=== PATIENT | male | born 1955 | race Caucasian/White ===

== ENCOUNTER 2018-11-22 13:34 | Inpatient (IN) ==
[2018-11-22] MEDS ORDERED: LASIX IV ONE (14:01)
[2018-11-22 14:38] LABS: BE -3.4 mmoll (-2.0-2.0); BLOOD TYPE VENOUS; HCO3-(ACT) 21.9 mmoll (22-27); PCO2(98.6) 35 mmHg (40-60); PO2(98.6) 37 mmHg (30-55); SAMPLE BLOOD; SAO2 73.4 % (40.0-85.0); pH(98.6) 7.39 (7.32-7.43)
[2018-11-22 14:48] LABS: BASO# 0.14 X1000 (0.0-0.2); BASO% 1.2 % (0.0-0.8); EOS% 4.4 % (0.0-10.0); HEMATOCRIT 23.3 % (42.0-52.0); HEMOGLOBIN 6.4 g/dL (14.0-18.0); IMM GRAN# 0.04 X1000 (0.0-0.04); IMM GRAN% 0.3 % (0.0-0.5); LYMPH# 1.61 X1000 (1.2-3.4); LYMPH% 14.1 % (20.5-51.1); MCH 20.8 PG (27-31); MCHC 27.5 g/dL (33-37); MCV 75.6 FL (81-99); MONO# 1.27 X1000 (0.11-0.59); MONO% 11.1 % (1.7-9.3); MPV 10.2 FL (7.4-10.4); NEUT# 7.89 X1000 (1.4-6.5); NEUT% 68.9 % (42.2-75.2); PLT 233 X1000 (130-400); RBC 3.08 XMIL (4.7-6.1); WBC 11.45 X1000 (4.8-10.8)
--- NOTE | 2018-11-22 14:49 | Diag Imaging Result Doc PS360 ---
CHEST-2 VIEWS - 11/22/2018 INDICATION: short of breath COMPARISON: 02/14/2018 FINDINGS: Lung volumes are moderately low. There is worsening right hemidiaphragm elevation. There is some adjacent atelectasis. No focal infiltrates, pneumothorax, or pleural effusion. Heart size is normal. IMPRESSION: Lower lung volumes. Worsening right hemidiaphragm elevation with adjacent atelectasis. Electronically signed by Gurinder Andrews 11/22/2018 2:48 PM
[2018-11-22 14:59] LABS: BILIRUBIN URINE NEGATIVE (NEGATIVE); BLOOD URINE 4+ (NEGATIVE); GLUCOSE URINE NEGATIVE (NEGATIVE); KETONE URINE NEGATIVE (NEGATIVE); LEUKOCYTES URINE TRACE (NEGATIVE); NITRITE URINE NEGATIVE (NEGATIVE); PH URINE 6.5; PROTEIN URINE TRACE mg/dL (NEGATIVE); UR AMPHETAMINES QUAL NONE DETECTED (NONE DETECT); UR BARBITUATES QUAL NONE DETECTED (NONE DETECT); UR BENZODIAZEPIN QUAL NONE DETECTED (NONE DETECT); UR CANNABINOIDS QUAL NONE DETECTED (NONE DETECT); UR COCAINE QUAL NONE DETECTED (NONE DETECT); UR METHADONE QUAL NONE DETECTED (NONE DETECT); UR METHAMPHETAMINE QUAL NONE DETECTED (NONE DETECT); UR OPIATES QUAL NONE DETECTED (NONE DETECT); UR OXYCODONE QUAL NONE DETECTED (NONE DETECT); UR PCP QUAL NONE DETECTED (NONE DETECT); UR PROPOXYPHENE QUAL NONE DETECTED (NONE DETECT); UR TCA QUAL NONE DETECTED (NONE DETECT); UROBILINOGEN URINE NORMAL
[2018-11-22 15:00] LABS: CLARITY SL. CLOUDY (CLEAR); COLOR YELLOW
[2018-11-22 15:00] LABS: INR 1.29; PROTIME 16.7 Seconds (11.0-16.0)
[2018-11-22 15:01] LABS: PTT 35.4 Seconds (22.3-41.8)
[2018-11-22 15:05] LABS: URINE SOURCE CLEAN CATCH
[2018-11-22 15:08] LABS: URINE BACTERIA 1+ /HFP; URINE CAST NONE SEEN /LPF; URINE CRYSTAL NONE SEEN /HPF; URINE EPITHELIAL CELLS <10 /HPF (<10); URINE RBC 20-40 /HPF (<10); URINE SMALL ROUND CELLS TRANSITIONAL PRESENT; URINE WBC <10 /HPF (<10); URINE YEAST NONE SEEN /HPF
[2018-11-22 15:13] LABS: AGAP 12; ALBUMIN 2.7 g/dL (3.5-5.0); ALKALINE PHOSPHATASE 456 U/L (32-122); BUN 4 mg/dL (8-22); CALCIUM 7.9 mg/dL (8.8-10.2); CHLORIDE 106 mmol/L (98-107); COSMO 275; CREATININE 0.7 mg/dL (0.7-1.2); ESTIMATED GFR > 60; GLUCOSE 105 mg/dL (70-104); GOT 63 U/L (10-34); GPT 20 U/L (10-44); POTASSIUM 3.9 mmol/L (3.5-5.1); SODIUM 139 mmol/L (136-145); TCO2 22 mmol/L (25-35); TOTAL PROTEIN 7.5 g/dL (6.3-8.3)
[2018-11-22] MEDS ORDERED: ROCEPHIN 1 GM in NS 50 ML IV ONE (16:12)
[2018-11-22] MEDS ORDERED: TYLENOL PO PRN (17:04)
[2018-11-22] MEDS ORDERED: ZOFRAN IV PRN (17:04)
[2018-11-22] MEDS: LASIX IV SCH (18:04)
--- NOTE | 2018-11-22 18:04 | HISTORY AND PHYSICAL ---
PRIMARY CARE PHYSICIAN: Harpreet Ellison MD CHIEF COMPLAINT: Swelling in his abdomen and bilateral lower extremities with shortness of breath over the last month that have progressively worsened. HISTORY OF PRESENTING ILLNESS: This is a 63-year-old male, who presents to [facility] ER with complaints of swelling to his bilateral lower extremities and his abdomen with some associated shortness of breath that have progressively worsened over the past month. He drinks alcohol daily, up to 12-18 beers daily. His laboratory data showed a hemoglobin of 6.4, hematocrit of 23.3. His total bilirubin was 1.20, AST of 63, alkaline phosphatase 456. Urine drug screen showed none detected. His chest x-ray showed lower lung volumes and worsening right hemidiaphragm elevation with adjacent atelectasis. He is noted to have marked swelling in his abdomen with some ascites noted, 4+ pitting edema to bilateral lower extremities. He is noted to have some mild icterus of the sclera to bilateral eyes, so he is going to be admitted for further evaluation and treatment. 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 PAST SURGICAL HISTORY: Hernia repair and cholecystectomy. FAMILY HISTORY: Reviewed and noncontributory. SOCIAL HISTORY: He currently lives with his . He is a nonsmoker. Drinks 12 to 18 beers a day and has done so for many years and denies any illicit drug use. ALLERGIES: Simvastatin. HOME MEDICATIONS: He does not take any medications on a routine basis. DIAGNOSTIC STUDIES: Laboratory data showed a white blood cell count of 11.45, hemoglobin 6.4, hematocrit 23.3, platelets 233,000. PT 16.7, INR 1.29. Venous blood gas showed a pH of 7.39, pCO2 of 35, PO2 of 37, bicarbonate 21.9 on room air. Sodium 139, potassium 3.9, chloride 106, CO2 of 22, BUN of 4, creatinine 0.7, glucose 105, total bilirubin 1.20, AST of 63, ALT 20, alkaline phosphatase 456. Troponin less than 0.010. ProBNP of 230. Plasma lactate of 2. Free T4 of 0.98. Urinalysis was negative except for 1+ bacteria. Urine drug screen was negative. Chest x-ray showed lower lung volumes with worsening right hemidiaphragm elevation with adjacent atelectasis. REVIEW OF SYSTEMS: He denied any fever, chills, blurred vision, dizziness, chest pain, coughing. He has had some shortness of breath, swelling to his abdomen and bilateral lower extremities. PHYSICAL EXAMINATION: NEUROLOGICAL: The cranial nerves 2-12 appear grossly intact. MUSCULOSKELETAL: Has 5/5 strength x4. EXTREMITIES: ASSESSMENT: 1. Alcoholic cirrhosis. 2. Anemia. 3. Ethanol abuse. 4. History of hypertension. PLAN: He will be admitted to the medical unit. Placed on telemetry. We will give 2 units of packed red blood cells today, typed and screened. He will be n.p.o. after midnight for a complete abdomen ultrasound. We will set him up for an abdomen ultrasound-guided paracentesis on Sunday. We will give him Lasix 40 mg IV q.12 h. Recheck CBC, BMP in the a.m. Give him Ativan 1 mg IV q.4 h. p.r.n. Librium 100 mg high-dose taper per protocol and recheck labs in the a.m. Further orders after seen by attending. Dictated by SPRING Hall for Kulwinder Shook MD cc: SPRING Hall MD Jay Pohl, MD
[2018-11-22] MEDS: LIBRIUM PO SCH ×2 (18:05→23:48)
[2018-11-22] MEDS ORDERED: TYLENOL PO ONE (18:32)
[2018-11-22] MEDS ORDERED: BENADRYL PO ONE (18:32)
[2018-11-22] MEDS ORDERED: NS 1,000 ML ONE (18:45)
[2018-11-22] MEDS ORDERED: NS 500 ML IV SCH (18:45)
--- NOTE | 2018-11-22 18:57 | EKG Report ---
Test Performed on : 11/22/2018 1:52:32 PM Test Reason : EDEMA Blood Pressure : / mmHG Vent. Rate : 091 BPM Atrial Rate : 091 BPM P-R Int : 170 ms QRS Dur : 088 ms QT Int : 362 ms P-R-T Axes : 025 -15 018 degrees QTc Int : 445 ms Normal sinus rhythm. Normal ECG When compared with ECG of 26-AUG-2012 13:05, No significant change was found Unconfirmed Result
[2018-11-22] MEDS: NS 1,000 ML IV SCH (18:58)
--- NOTE | 2018-11-22 21:50 | HISTORY AND PHYSICAL ---
ADDENDUM: Patient seen and examined by myself. Full note dictated and discussed with nurse practitioner. Patient presented to the hospital complaining of swelling in his abdomen as well as his feet and legs. This has been going on for a month or so. It has continued to worsen. Denies any fevers, chills. Denies any true abdominal pain. Denies any jaundice. The patient currently his 2+ edema in his lower extremities as well as ascites. Expect this is secondary to alcoholic liver disease. We will continue to follow. We will admit him to the hospital, place him on Lasix. Further orders as needed. We will monitor for alcohol withdrawal. cc: Kulwinder Shook MD
[2018-11-23] MEDS: ATIVAN IV PRN ×2 (05:38→22:07)
[2018-11-23] MEDS: LASIX IV SCH ×2 (05:38→18:49)
[2018-11-23] MEDS: LIBRIUM PO SCH ×3 (05:39→18:49)
[2018-11-23 06:53] LABS: AGAP 12; ALBUMIN 2.8 g/dL (3.5-5.0); ALKALINE PHOSPHATASE 447 U/L (32-122); BUN 6 mg/dL (8-22); CALCIUM 8.5 mg/dL (8.8-10.2); CHLORIDE 105 mmol/L (98-107); COSMO 279; CREATININE 0.7 mg/dL (0.7-1.2); ESTIMATED GFR > 60; GLUCOSE 99 mg/dL (70-104); GOT 58 U/L (10-34); GPT 18 U/L (10-44); POTASSIUM 3.5 mmol/L (3.5-5.1); SODIUM 141 mmol/L (136-145); TCO2 25 mmol/L (25-35); TOTAL PROTEIN 7.4 g/dL (6.3-8.3)
[2018-11-23 08:15] LABS: BASO# 0.09 X1000 (0.0-0.2); BASO% 0.7 % (0.0-0.8); EOS# 0.62 X1000 (0.0-0.7); HEMATOCRIT 28.3 % (42.0-52.0); HEMOGLOBIN 8.3 g/dL (14.0-18.0); IMM GRAN# 0.03 X1000 (0.0-0.04); IMM GRAN% 0.2 % (0.0-0.5); LYMPH# 1.55 X1000 (1.2-3.4); LYMPH% 12.6 % (20.5-51.1); MCH 22.3 PG (27-31); MCHC 29.3 g/dL (33-37); MCV 75.9 FL (81-99); MONO% 12.1 % (1.7-9.3); MPV 10.3 FL (7.4-10.4); NEUT# 8.56 X1000 (1.4-6.5); NEUT% 69.4 % (42.2-75.2); PLT 205 X1000 (130-400); RBC 3.73 XMIL (4.7-6.1); RDW 18.8 % (11.5-14.5); WBC 12.35 X1000 (4.8-10.8)
[2018-11-23] MEDS: ALDACTONE PO SCH (12:49)
--- NOTE | 2018-11-23 13:04 | Diag Imaging Result Doc PS360 ---
EXAM: US ABDOMEN-COMPLETE HISTORY: Alcoholic Cirrhosis,Ascites TECHNIQUE: Abdominal ultrasound COMPARISON: 07/05/2015 FINDINGS: The pancreas is predominantly obscured. No aortic aneurysm. Normal inferior vena cava. The liver is not enlarged. Normal right kidney. No hydronephrosis. Normal left kidney. No hydronephrosis. The spleen measures 13.9 cm in length. The gallbladder has been removed. The common bile duct measures 5 mm. There is a small to moderate amount of ascites. IMPRESSION: Small to moderate amount of ascites Electronically signed by Issa Estrada 11/23/2018 1:02 PM
[2018-11-23] MEDS: NS 1,000 ML IV SCH (16:58)
--- NOTE | 2018-11-23 18:13 | PROGRESS NOTE ---
DATE: 11/23/2018 SUBJECTIVE: The patient is awake at times, other times he is somnolent. Denies any current changes. is at the bedside. PHYSICAL EXAMINATION: vital signs: Temperature 97.9 degrees, pulse 84, respiratory rate 18, BP 135/55. General: The patient is awake. He is in no respiratory distress. HEENT: Normocephalic. Neck: Supple. Cardiovascular: Regular rate. No murmurs. Chest: Clear and unlabored. Abdomen: Soft, distended, nontender. Positive fluid wave. Extremities: Moves all extremities. No edema. Neurologic: No focal changes. ASSESSMENT: 1. Alcoholic cirrhosis with ascites and minimal scleral jaundice. 2. Chronic alcohol abuse. 3. Hypertension. 4. Anemia of chronic disease. 5. Hyperbilirubinemia. PLAN: Continue the patient in the hospital. We will plan for an ultrasound-guided paracentesis on Sunday. He does not have any signs or symptoms of infection. We will continue Lasix IV. We will add Aldactone. We will follow. Continue to monitor. cc: Kulwinder Shook MD
[2018-11-24] MEDS: LIBRIUM PO SCH ×4 (00:10→18:47)
[2018-11-24] MEDS: LASIX IV SCH ×2 (06:26→18:47)
[2018-11-24] MEDS: ALDACTONE PO SCH (08:44)
[2018-11-24] MEDS: NS 1,000 ML IV SCH (11:47)
--- NOTE | 2018-11-24 15:36 | PROGRESS NOTE ---
DATE: 11/24/2018 SUBJECTIVE: Patient is awake. Notes overall he is feeling a little bit better. Denies any current problems. PHYSICAL: Vital Signs: Reviewed. Temperature 97.9 degrees, pulse 84, respiratory 18, BP 135/55. General: Patient is awake, alert, he is in no current respiratory distress. Currently he is oriented x3. HEENT: Normocephalic. Neck: Supple. Cardiovascular: Regular rate. Chest: Clear. Abdomen: Soft, distended, nontender. Positive bowel sounds. Positive fluid wave. Extremities: Moves all extremities. Neuro: No focal changes. ASSESSMENT: 1. Alcoholic cirrhosis with ascites. 2. Chronic alcoholism . 3. Anemia of chronic disease. 4. Hyperbilirubinemia. PLAN: Will continue patient in the hospital, continue to wean Librium. Follow his labs. Will attempt to get an ultrasound-guided paracentesis, will discuss with GI. Further orders as needed. cc: Kulwinder Shook MD
[2018-11-25] MEDS: LIBRIUM PO SCH ×4 (00:05→20:57)
[2018-11-25] MEDS: LASIX IV SCH (05:25)
[2018-11-25 07:30] LABS: HEMATOCRIT 28.8 % (42.0-52.0); HEMOGLOBIN 8.4 g/dL (14.0-18.0); MCH 22.2 PG (27-31); MCHC 29.2 g/dL (33-37); MCV 76.2 FL (81-99); MPV 9.9 FL (7.4-10.4); RBC 3.78 XMIL (4.7-6.1); RDW 19.7 % (11.5-14.5); WBC 11.14 X1000 (4.8-10.8)
[2018-11-25 07:43] LABS: INR 1.38; PROTIME 17.7 Seconds (11.0-16.0)
[2018-11-25 08:00] LABS: AGAP 10; ALBUMIN 2.5 g/dL (3.5-5.0); ALKALINE PHOSPHATASE 376 U/L (32-122); BUN 6 mg/dL (8-22); CALCIUM 8.1 mg/dL (8.8-10.2); CHLORIDE 101 mmol/L (98-107); COSMO 280; CREATININE 0.7 mg/dL (0.7-1.2); ESTIMATED GFR > 60; GLUCOSE 115 mg/dL (70-104); GOT 40 U/L (10-34); GPT 15 U/L (10-44); MAGNESIUM 1.2 mg/dL (1.5-2.7); POTASSIUM 2.8 mmol/L (3.5-5.1); SODIUM 141 mmol/L (136-145); TCO2 30 mmol/L (25-35); TOTAL PROTEIN 7.1 g/dL (6.3-8.3)
[2018-11-25] MEDS ORDERED: MAGNESIUM SULFATE 2 GM/S.W.I. 2 GM/50 ML IVPB IV ONE (08:27)
[2018-11-25] MEDS: POTASSIUM CHLORIDE 20 MEQ/SWI 20 MEQ/100 ML IVPB IV SCH ×2 (09:20→12:26)
[2018-11-25] MEDS: ALDACTONE PO SCH ×2 (10:42→20:57)
--- NOTE | 2018-11-25 12:04 | Diag Imaging Result Doc PS360 ---
EXAM: US ABD PARACENTESIS W S/I HISTORY: Ascites,Alcoholic cirrhosis TECHNIQUE: Ultrasound-guided paracentesis COMPARISON: 11/23/2018 FINDINGS: Prior to the procedure I discussed the risk and benefits with the patient. Primary risks include bleeding, infection, bowel injury, and liver injury. Questions were answered. Consent was given. The permit was signed. Interval increase in the ascites since the prior exam. Ultrasound was used to localize the largest fluid collection in the right abdomen. This area was cleaned and draped in the normal fashion. Lidocaine was used as a local anesthetic. Needle and catheter were advanced into the fluid collection on the first attempt without difficulty. The needle was withdrawn. The catheter was hooked to suction. Approximately 3.4 L of thin yellowish fluid were withdrawn without difficulty. The catheter was then withdrawn. No immediate postprocedural complications. IMPRESSION: Successful ultrasound-guided paracentesis. Fluid sent to the laboratory for analysis. Electronically signed by Issa Estrada 11/25/2018 12:02 PM
[2018-11-25] MEDS ORDERED: LIBRIUM PO SCH (13:00)
[2018-11-25 14:56] LABS: BODY FLUID SOURCE PERITONEAL FLUID
[2018-11-25 15:06] LABS: WBC BF 0.255 /cumm
[2018-11-25 18:16] LABS: AMYLASE BODY FLUID 13 U/L; TOTAL PROT BODY FLUID 2.3 g/dL
--- NOTE | 2018-11-25 18:51 | PROGRESS NOTE ---
DATE: 11/25/2018 SUBJECTIVE: Patient notes he is very tired. He is having difficulty getting out of bed without assistance. His notes that he is alert and oriented. PHYSICAL EXAMINATION: Vital Signs: He is afebrile. Pulse 80s, respiratory 20, BP stable. General: Patient is awake, alert. He is in no current respiratory distress. HEENT: Normocephalic. Neck: Supple. Cardiovascular: Regular rate. Chest: Clear, nonlabored. Abdomen: Soft, distended, nontender. Extremities: Moves all extremities, although generalized weakness. Neurologic: No focal changes. ASSESSMENT: 1. Cirrhosis, likely from alcoholism. 2. Chronic alcoholism. 3. Anemia of chronic disease. 4. Ascites. 5. Hyperbilirubinemia. PLAN: We are going to continue the patient in the hospital. Continue to wean down his Librium. We will ask Radiology for a diagnostic paracentesis. We will get physical therapy involved and will follow. Expect patient to be in the hospital a couple more days due to his physical weakness and inability to care for himself. cc: Kulwinder Shook MD
[2018-11-25] MEDS: NS 1,000 ML IV SCH (23:51)
[2018-11-26] MEDS: ATIVAN IV PRN (04:26)
[2018-11-26 06:55] LABS: MCH 22.1 PG (27-31); MCV 76.2 FL (81-99); MPV 10.4 FL (7.4-10.4); RBC 4.07 XMIL (4.7-6.1); RDW 20.1 % (11.5-14.5); WBC 12.86 X1000 (4.8-10.8)
[2018-11-26 07:13] LABS: AGAP 11; ALBUMIN 2.7 g/dL (3.5-5.0); ALKALINE PHOSPHATASE 413 U/L (32-122); BUN 7 mg/dL (8-22); CALCIUM 8.1 mg/dL (8.8-10.2); CHLORIDE 100 mmol/L (98-107); COSMO 276; CREATININE 0.7 mg/dL (0.7-1.2); ESTIMATED GFR > 60; GLUCOSE 107 mg/dL (70-104); GOT 53 U/L (10-34); GPT 19 U/L (10-44); MAGNESIUM 1.6 mg/dL (1.5-2.7); POTASSIUM 3.1 mmol/L (3.5-5.1); SODIUM 139 mmol/L (136-145); TCO2 29 mmol/L (25-35); TOTAL PROTEIN 7.7 g/dL (6.3-8.3)
[2018-11-26] MEDS ORDERED: KLOR-CON PO ONE (08:42)
[2018-11-26] MEDS: LIBRIUM PO SCH ×2 (08:47→20:37)
[2018-11-26] MEDS: ALDACTONE PO SCH ×2 (08:47→20:38)
[2018-11-26] MEDS: LASIX PO SCH (08:47)
[2018-11-26] MEDS: NS 1,000 ML IV SCH ×2 (08:49→20:35)
[2018-11-26] MEDS: LACTULOSE PO PRN (13:28)
--- NOTE | 2018-11-26 15:44 | PROGRESS NOTE ---
DATE: 11/26/2018 SUBJECTIVE: The patient currently is awake, alert. He does have some issues with sundowning in the middle of the night, getting confused, disoriented. PHYSICAL EXAMINATION: Vital Signs: He is afebrile. Vital signs reviewed. Pulse 85, respiratory 20, BP 140/67. General: Patient is in no distress. HEENT: Normocephalic. Neck: Supple. Cardiovascular: Regular rate. Chest: Clear, nonlabored. Abdomen: Soft. Slightly distended. Nontender. Positive bowel sounds. Extremities: Moves all extremities. No edema. Neurologic: No focal changes. Skin: Warm, dry. No rashes. ASSESSMENT: 1. Alcoholic cirrhosis causing ascites. 2. Chronic alcohol abuse. 3. Hypertension. PLAN: Continue patient in the hospital. Currently, he is having great difficulty getting out of bed, as to be expected with his abrupt alcohol withdrawal. He is stable from a withdrawal standpoint. We are going to continue in the hospital. Continue physical therapy. Certainly expect he may need rehab on discharge. cc: Kulwinder Shook MD
[2018-11-27] MEDS: ATIVAN IV PRN (05:25)
[2018-11-27] MEDS ORDERED: ATIVAN IV PRN (08:42)
[2018-11-27] MEDS ORDERED: LIBRIUM PO SCH (09:00)
[2018-11-27] MEDS: NS 1,000 ML IV SCH (09:52)
[2018-11-27] MEDS: LASIX PO SCH (09:53)
[2018-11-27] MEDS: ALDACTONE PO SCH ×2 (09:53→20:27)
--- NOTE | 2018-11-27 19:15 | PROGRESS NOTE ---
DATE: 11/27/2018 SUBJECTIVE: The patient's notes that he is doing a little bit better, although he is still very weak and fatigued. Mentally, he is improving. PHYSICAL EXAMINATION: Vital Signs: Reviewed. Temperature 99 degrees, pulse 84, respiratory rate 18, BP 118/66. General: Patient is in no current distress. He is awake and alert at the present time. HEENT: Normocephalic. Neck: Supple. Cardiovascular: Regular rate. Chest: Clear. Abdomen: Soft. Extremities: Moves all extremities. Neurologic: No focal changes. ASSESSMENT: 1. Alcoholic cirrhosis. 2. Anemia. 3. Ascites. 4. Hypertension. PLAN: We will continue to follow. cc: Kulwinder Shook MD
[2018-11-28] MEDS ORDERED: BLISTEX MEDICATED BERRY LIP BALM TOP ONE (05:00)
[2018-11-28 05:52] LABS: HEMOGLOBIN 8.2 g/dL (14.0-18.0); MCH 22.4 PG (27-31); MCHC 29.3 g/dL (33-37); MCV 76.5 FL (81-99); MPV 10.9 FL (7.4-10.4); RBC 3.66 XMIL (4.7-6.1); RDW 19.8 % (11.5-14.5); WBC 12.68 X1000 (4.8-10.8)
[2018-11-28 06:18] LABS: INR 1.33; PROTIME 17.1 Seconds (11.0-16.0)
[2018-11-28 06:24] LABS: AGAP 9; ALBUMIN 2.3 g/dL (3.5-5.0); ALKALINE PHOSPHATASE 354 U/L (32-122); BUN 7 mg/dL (8-22); CALCIUM 7.8 mg/dL (8.8-10.2); CHLORIDE 101 mmol/L (98-107); COSMO 274; CREATININE 0.7 mg/dL (0.7-1.2); ESTIMATED GFR > 60; GLUCOSE 101 mg/dL (70-104); GOT 52 U/L (10-34); GPT 21 U/L (10-44); MAGNESIUM 1.4 mg/dL (1.5-2.7); POTASSIUM 3.2 mmol/L (3.5-5.1); SODIUM 138 mmol/L (136-145); TCO2 28 mmol/L (25-35); TOTAL PROTEIN 6.8 g/dL (6.3-8.3)
[2018-11-28] MEDS ORDERED: KLOR-CON PO ONE (06:52)
[2018-11-28] MEDS ORDERED: MAG-OX PO SCH (09:00)
[2018-11-28] MEDS: ALDACTONE PO SCH (10:27)
[2018-11-28] MEDS: LASIX PO SCH (10:28)
[2018-11-28] MEDS: LACTULOSE PO PRN (10:29)
--- NOTE | 2018-11-28 12:33 | DISCHARGE SUMMARY ---
ADMISSION DATE: 11/22/2018 DISCHARGE DATE: 11/28/2018 DIAGNOSES: 1. Alcoholic cirrhosis. 2. Anemia. 3. Ethanol abuse. 4. History of hypertension. 5. Ascites. 6. Hyperbilirubinemia, improving. DIAGNOSTICS: 1. Chest x-ray revealed low lung volumes, worsening in the right hemidiaphragm elevation with adjacent atelectasis. 2. Abdominal ultrasound revealed small to moderate amount of ascites. MICROBIOLOGY: 1. Blood cultures x2 revealed no growth after 5 days. 2. Urine culture revealed no pathogenic growth. 3. Peritoneal fluid culture revealed no growth. No anaerobes isolated. INVASIVE PROCEDURE: 11/23/2018 paracentesis: Successful ultrasound-guided paracentesis with approximately 3.4 liters of thin yellowish fluid withdrawn without difficulty per Radiology. HOSPITAL COURSE: Mr. Barkley presented to the emergency room with swelling in his abdomen and bilateral lower extremities and shortness of breath that has been present for about 4 to 6 weeks prior. He was found to have ascites, which was suspected to be secondary to alcoholic liver disease. He was admitted, placed on Lasix and Aldactone. He underwent a paracentesis per Radiology for 3.1 liters of thin yellow fluid returned. He did have some difficulty with sundown syndrome while in the hospital, although this has improved. Due to his ongoing alcohol use, he was placed on Librium and has since been tapered off. He was having difficulty standing and walking. Physical therapy was consulted and he has cooperated. He does have periods of confusion it seems, although these have improved. DISCHARGE VITAL SIGNS: Blood pressure is 124/51, heart rate of 83, respirations 16, temperature 97.8 degrees with room air saturations 97% to 99%. DISCHARGE PHYSICAL EXAMINATION: Cardiovascular: Regular rate and rhythm. S1 and S2 are appreciated. Calves are nontender bilateral with peripheral pulses palpable x4 extremities. Pulmonary: Breath sounds are diminished in the bases. Chest rises and falls symmetric with respiration. Chest wall is nontender to palpation. Gastrointestinal: Abdomen is large and round. It is soft with bowel sounds in all 4 quadrants. DISCHARGE MEDICATIONS: 1. Aldactone 25 mg p.o. b.i.d. 2. Magnesium oxide 400 mg p.o. b.i.d. 3. Lactulose 30 mL p.o. daily p.r.n. constipation. 4. Lasix 40 mg p.o. daily. 5. Tylenol 650 p.o. q. 6 hours p.r.n. DISPOSITION: [facility] with his present. TIME SPENT: This is a greater than 30 minute discharge. Dictated by SPRING Ivory for Kulwinder Shook MD cc: SPRING Ivory MD Jay Pohl, MD
[2018-11-28 14:23] VITALS: BP 159/68
--- NOTE | 2018-11-29 04:18 | DISCHARGE SUMMARY ---
ADMISSION DATE: 11/22/2018 DISCHARGE DATE: 11/27/2018 ADDENDUM: Patient seen and examined by myself. Full note dictated and discussed with nurse practitioner. On discharge, patient is awake, alert. He is in no respiratory distress. He is still physically weak. We admitted him to the hospital with cirrhosis and ascites. Placed him on Lasix and Aldactone. He continued to improve although on discharge was still too physically weak to go home. Therefore, he will be discharged to rehab. cc: Kulwinder Shook MD
--- NOTE | 2018-12-04 17:29 | PROVIDER DOCUMENTATION ---
This chart was entered by Holly Dave Scribe, acting as scribe for Thomas Olguin MD. HPI-General Adult - General Chief Complaint: Edema Stated Complaint: EDEMA IN ABD/LEGS Time Seen by Provider: 11/22/18 13:46 Source: patient Allergies/Adverse Reactions: Patient Allergies Allergy/AdvReac Type Severity Reaction Status Date / Time simvastatin Allergy Intermediate HIVES Verified 11/22/18 15:11 Home Medications: Home Medication List Medication Instructions Recorded Confirmed Last Taken Type NK [No Home Medications] 11/22/18 11/22/18 Unknown History - History of Present Illness -Gen Adult Nature of Presenting Problems: Patient is a 63 year old male who presents with swelling to bilateral legs and abdomen. States mild shortness of breath. Reports symptoms have been present for 1 month. Denies history of CHF and liver disease. Location of Pain/Injury: reports: none Pain Radiation: reports: no radiation Quality of Pain: reports: none Severity: reports: mild Onset/Duration: reports: other (1 month) Timing: reports: still present, getting worse Associated Symptoms: reports: shortness of breath (mild), swelling/mass in abdomen (abdomen), other (swelling to bilateral legs) Similar Symptoms Previously?: Yes Recently seen or treated by another doctor?: No Review of Systems - Adult - REVIEW OF SYSTEMS - ADULT Constitutional: reports: no symptoms reported. denies: chills, fever, fatique Eyes: reports: no symptoms reported Ears, Nose, Mouth & Throat: reports: no symptoms reported. denies: ear pain, nose pain, throat pain Cardiovascular: reports: no symptoms reported. denies: chest pain, irregular heart rate, palpitations Respiratory: reports: see HPI, shortness of breath. denies: cough, wheezing Gastrointestinal: reports: no symptoms reported Genitourinary: reports: no symptoms reported Musculoskeletal: reports: no symptoms reported Integumentary: reports: see HPI, other (swelling to bilateral legs and abdomen). denies: hives, itching, rash Neurological: reports: no symptoms reported Psychiatric: reports: no symptoms reported Endocrine: reports: no symptoms reported Hematologic/Lymphatic: reports: no symptoms reported Allergic/Immunologic: reports: no symptoms reported All Other Systems: Reviewed and Negative Past History - Adult - PAST MEDICAL HISTORY-ADULT Review of Records: reports: Old Records Reviewed, Nursing Assessment Review, Medications Reviewed, Social history reviewed & non-contributory. Major Childhood Illnesses: reports: denies history Cardiovascular: reports: HTN Respiratory: reports: denies history Gastrointestinal: reports: denies history Obstetrical/Gynecological: reports: denies history Genitourinary: reports: denies history Musculoskeletal: reports: denies history Neurological: reports: denies history Psychiatric: reports: denies history Endocrine/Immune: reports: denies history Other Conditions: reports: denies history - PRIOR SURGERIES/PROCEDURES Surgical/Procedure History: reports: cholecystectomy - PRIOR HOSPITALIZATIONS Prior Hospitalizations: reports: none - IMMUNIZATION STATUS Childhood Immunizations: See Nurse Assessment Flu Vaccine: See Nurse Assessment - FAMILY HISTORY Family History: reviewed, not pertinent - SOCIAL HISTORY Smoking: denies Substance Use: alcohol Alcohol Use Frequency: every day Living Situation: family Physical Exam-General - PHYSICAL EXAM-ADULT Initial Vital Signs Reviewed: Yes - CONSTITUTIONAL General Appearance: alert, no apparent distress, obese. negative: lethargic - EYES Eyes: PERRL/EOMI, pink conjunctivae. negative: scleral icterus, sunken eyes - HEAD, EARS, NOSE, MOUTH & THROAT HENMT: normocephalic/atraumatic, moist mucous membranes. negative: angioedema - RESPIRATORY Respiratory: chest non-tender, lungs clear, normal breath sounds. negative: rales, rhonchi - CARDIOVASCULAR Cardiovascular: normal peripheral pulses, regular rate, rhythm. negative: tachycardia, systolic murmur - GASTROINTESTINAL (ABDOMEN) Abdominal Exam: normal bowel sounds, non tender, soft, distended, other (2 + pitting edema to generalized abdomen). negative: rigid - MUSCULOSKELETAL Extremity: non-tender, other (4 + pitting edema to bilateral lower legs). negative: deformity - SKIN Integumentary: normal color, normal turgor, warm/dry. negative: cyanosis, jaundice - NEUROLOGIC Neurologic: grossly normal. negative: aphasia, facial droop - PSYCHIATRIC Psych/Mental Status: normal mood/affect, oriented x 3. negative: anxious Progress - PLAN OF CARE/RESULTS Progress/Plan/Lab Results: Vital Signs - 8 hr 11/22/18 13:36 Temperature 98.8 F Pulse Rate 91 H Respiratory Rate 18 Blood Pressure 167/75 O2 Sat by Pulse Oximetry 100 Result Diagrams: 11/22/18 14:25 11/22/18 14:25 - EKG 1 Time of EKG reading by physician:: 13:52 EKG Read and Signed by:: Thomas Olguin EKG Interpretation (*Must complete 3 of following elements*): Normal Rate: 91 Rhythm: normal sinus rhythm [place]: normal QRS: normal [place] Interval: normal ST Wave: normal Comments: normal ECG - XRAY 1 XRAY Study: Chest Impression: See EMR Report ( CHEST-2 VIEWS - 11/22/2018 INDICATION: short of breath COMPARISON: 02/14/2018 FINDINGS: Lung volumes are moderately low. There is worsening right hemidiaphragm elevation. There is some adjacent atelectasis. No focal infiltrates, pneumothorax, or pleural effusion. Heart size is normal. IMPRESSION: Lower lung volumes. Worsening right hemidiaphragm elevation with adjacent atelectasis. Electronically signed by Gurinder Andrews 11/22/2018 2:48 PM 11/22/18 1448 Interpreting Physician: Gurinder Andrews MD Dictated Date/Time: 11/22/18 1446 cc: Thomas Olguin MD; Harpreet Ellison MD) - CONSULTS/PCP/HOSPITALIST Notification #1 *Consult/PCP/Hospitalist*: Dr. Shook Time Discussed: 15:56 Reason/Comments: Dr. Olguin consulted with Dr. Shook about patient. Consult Disposition: Will see in ED, Admit Departure - Departure Date of Disposition Decision: 11/22/18 Time of Disposition Decision: 15:57 DIAGNOSIS: Edema, Anemia, Cellulitis, abdominal wall, Elevated LFTs, Chronic alcohol dependence, continuous Disposition: ADMITTED INPATIENT 09 Certified Medical Emergency: Emergent Condition: Fair Referrals and Follow-Ups: Harpreet Ellison MD [Primary Care Provider] - - Critical Care Note This patient required my direct & personal management of CC.: No Attestation - Physician/ SUMEET Attestation Patient care was provided by Advanced Practice Provider:: No The physician spent face to face time with patient:: Yes Advanced Practice Provider documentation review:: Supervising physician onsite and consulted in the evaluation and care of this patient. The physician did have a face to face encounter with the patient. This chart was documented by the indicated scribe, (Holly Dave Scribe) and accurately reflects the services I performed and decisions made by me, hTomas Olguin MD, as attested by the provider's signature.
== END 2018-11-28 15:30 | DRG 434 ==
LOC: P.ED 13:34 → P.MEDSURG 13:35
PROVIDERS: ATTEND Family Medicine

== ENCOUNTER 2019-07-13 18:41 | Observation (INO) ==
[2019-07-13 19:22] LABS: ESTIMATED GFR > 60
--- NOTE | 2019-07-13 19:23 | PROVIDER DOCUMENTATION ---
This chart was entered by Tanya Llanes Scribe, acting as scribe for Anmol Darling MD. HPI-General Adult - General Chief Complaint: Abnormal Lab[s] Stated Complaint: LAB FOLLOW UP Time Seen by Provider: 07/13/19 18:45 Source: patient Allergies/Adverse Reactions: Patient Allergies Allergy/AdvReac Type Severity Reaction Status Date / Time simvastatin Allergy Intermediate HIVES Verified 11/22/18 15:11 Home Medications: Home Medication List Medication Instructions Recorded Confirmed Last Taken Type Furosemide [Lasix] 40 mg PO DAILY tab 11/28/18 07/13/19 Unknown Rx Magnesium Oxide [Mag-Ox] 400 mg PO BID tab 11/28/18 07/13/19 Unknown Rx Spironolactone [Aldactone] 25 mg PO BID tab 11/28/18 07/13/19 Unknown Rx Multivitamin [Multivitamins] 1 ea PO DAILY 07/13/19 07/13/19 Unknown History - History of Present Illness -Gen Adult Nature of Presenting Problems: 63 y/o white male with history of symptomatic ascites, followed by GI doctor in [place], who presents with low serum sodium on labs today. The patient states he had paracentesis done Sunday for ascites drainage with 5L fluid removed. Cause of ascites is unkown to the patient. The patient is a very poor historian. Allergies unknown. Patient is currently asymptomatic and denies sob or chest pain. Location of Pain/Injury: reports: generalized Onset/Duration: reports: gradual (c) Associated Symptoms: denies: cough, fever/chills Similar Symptoms Previously?: No Recently seen or treated by another doctor?: No Review of Systems - Adult - REVIEW OF SYSTEMS - ADULT Constitutional: denies: chills, fever, weight loss Cardiovascular: denies: chest pain, palpitations, syncope Respiratory: denies: cough, hemoptysis, wheezing Gastrointestinal: reports: diarrhea. denies: nausea, poor appetite, vomiting Genitourinary: denies: dysuria, frequency, hematuria Past History - Adult - PAST MEDICAL HISTORY-ADULT Review of Records: reports: Old Records Reviewed, Nursing Assessment Review, Medications Reviewed Major Childhood Illnesses: reports: denies history Cardiovascular: reports: HTN Respiratory: reports: denies history Gastrointestinal: reports: denies history Obstetrical/Gynecological: reports: denies history Genitourinary: reports: denies history Musculoskeletal: reports: denies history Neurological: reports: denies history Psychiatric: reports: denies history Endocrine/Immune: reports: denies history Other Conditions: reports: denies history - PRIOR SURGERIES/PROCEDURES Surgical/Procedure History: reports: cholecystectomy - PRIOR HOSPITALIZATIONS Prior Hospitalizations: reports: none - IMMUNIZATION STATUS Childhood Immunizations: See Nurse Assessment Flu Vaccine: See Nurse Assessment - FAMILY HISTORY Family History: reviewed, not pertinent - SOCIAL HISTORY Smoking: non-smoker Substance Use: alcohol Alcohol Use Frequency: every day Living Situation: family Physical Exam-General - PHYSICAL EXAM-ADULT Initial Vital Signs Reviewed: Yes - CONSTITUTIONAL General Appearance: alert - EYES Eyes: PERRL/EOMI (left eye), other (no pupil right eye) - HEAD, EARS, NOSE, MOUTH & THROAT HENMT: moist mucous membranes - NECK Neck: full range of motion, supple - RESPIRATORY Respiratory: lungs clear, normal breath sounds. negative: rales, rhonchi, wheezing - CARDIOVASCULAR Cardiovascular: regular rate, rhythm, other (bilateral lower extremity edema) - GASTROINTESTINAL (ABDOMEN) Abdominal Exam: non tender, distended, other (ascites) - MUSCULOSKELETAL Back Exam: normal inspection, no CVA tenderness Extremity: non-tender, pelvis stable, other (4+ pitting ankle and pretibial edema bilaterally) - SKIN Integumentary: normal color, warm/dry Progress - PLAN OF CARE/RESULTS Progress/Plan/Lab Results: Vital Signs - 8 hr 07/13/19 18:47 Temperature 98.0 F Pulse Rate 84 Respiratory Rate 18 Blood Pressure 155/64 O2 Sat by Pulse Oximetry 99 Orders Category Date Time Status Saline Loc DIRECTED Care 07/13/19 18:46 Active NPO Diet 07/13/19 18:46 Active CBC WITH ELECTRONIC DIFF [HEME] Stat Lab 07/13/19 18:33 Results COMPREHENSIVE METABOLIC PANEL [CHEM] Stat Lab 07/13/19 18:33 Received 1946: Sodium 118 called from lab. Will consult Dr. Shook/Hospitalist for admission. Result Diagrams: 07/13/19 18:33 07/13/19 18:33 - CONSULTS/PCP/HOSPITALIST Notification #1 *Consult/PCP/Hospitalist*: Abbi Martinez Time Discussed: 20:27 Reason/Comments: hyponatremia Consult Disposition: other (admit to [facility]) #2 Consult: Luz Malinist at [facility] paged aty 2028 #3 Consult: Dr. Burgos Hospitalist paged at 2036 Time Discussed: 20:41 Reason/Comments: hyponatremia, ascites,request starting IV albumin and restrict fluids Consult Disposition: Admit Departure - Departure Date of Disposition Decision: 07/13/19 Time of Disposition Decision: 19:47 DIAGNOSIS: Hyponatremia Ascites Qualifiers: Ascites type: other type Qualified Code(s): R18.8 - Other ascites Disposition: ADMITTED INPATIENT 09 Certified Medical Emergency: Urgent Condition: Stable Referrals and Follow-Ups: Harpreet Ellison MD [Primary Care Provider] - - Critical Care Note This patient required my direct & personal management of CC.: No Attestation - Physician/ SUMEET Attestation Patient care was provided by Advanced Practice Provider:: No The physician spent face to face time with patient:: Yes Advanced Practice Provider documentation review:: Supervising physician onsite and consulted in the evaluation and care of this patient. The physician did have a face to face encounter with the patient. This chart was documented by the indicated scribe, (Tanya Llanes, Teena) and accurately reflects the services I performed and decisions made by me, Anmol Darling MD, as attested by the provider's signature.
[2019-07-13 19:45] LABS: AGAP 13; ALBUMIN 2.8 g/dL (3.5-5.0); ALKALINE PHOSPHATASE 276 U/L (32-122); BUN 10 mg/dL (8-22); CALCIUM 8.2 mg/dL (8.8-10.2); CHLORIDE 87 mmol/L (98-107); COSMO 239; GLUCOSE 117 mg/dL (70-104); GOT 42 U/L (10-34); GPT 13 U/L (10-44); POTASSIUM 4.9 mmol/L (3.5-5.1); TCO2 19 mmol/L (25-35); TOTAL PROTEIN 6.6 g/dL (6.3-8.3)
[2019-07-13 19:46] LABS: SODIUM 118 mmol/L (136-145)
[2019-07-13] MEDS ORDERED: NS 1,000 ML IV ONE (19:46)
[2019-07-13 20:12] LABS: BASO# 0.08 X1000 (0.0-0.2); BASO% 0.7 % (0.0-0.8); EOS# 0.29 X1000 (0.0-0.7); EOS% 2.5 % (0.0-10.0); HEMATOCRIT 23.8 % (42.0-52.0); HEMOGLOBIN 7.5 g/dL (14.0-18.0); IMM GRAN# 0.05 X1000 (0.0-0.04); IMM GRAN% 0.4 % (0.0-0.5); LYMPH# 1.39 X1000 (1.2-3.4); LYMPH% 11.9 % (20.5-51.1); MCH 25.2 PG (27-31); MCHC 31.5 g/dL (33-37); MCV 79.9 FL (81-99); MONO# 0.77 X1000 (0.11-0.59); MONO% 6.6 % (1.7-9.3); MPV 7.9 FL (7.4-10.4); NEUT# 9.09 X1000 (1.4-6.5); NEUT% 77.9 % (42.2-75.2); PLT 428 X1000 (130-400); RBC 2.98 XMIL (4.7-6.1); RDW 14.6 % (11.5-14.5); WBC 11.67 X1000 (4.8-10.8)
[2019-07-13] MEDS ORDERED: ALBUMIN 25% IV ONE (20:43)
[2019-07-14] MEDS ORDERED: ALBUMIN 25% IV ONE ×3 (00:45→17:30)
[2019-07-14 02:21] LABS: INR 1.38; PROTIME 17.2 Seconds (11.0-16.0)
[2019-07-14 02:22] LABS: PTT 38.2 Seconds (22.3-41.8)
[2019-07-14 02:32] LABS: PHOSPHORUS 3.5 mg/dL (2.7-4.5)
[2019-07-14 04:18] LABS: URINE SOURCE CLEAN CATCH
[2019-07-14 04:23] LABS: BILIRUBIN URINE NEGATIVE (NEGATIVE); BLOOD URINE MODERATE (NEGATIVE); COLOR YELLOW; GLUCOSE URINE NEGATIVE (NEGATIVE); KETONE URINE NEGATIVE (NEGATIVE); LEUKOCYTES URINE NEGATIVE (NEGATIVE); NITRITE URINE NEGATIVE (NEGATIVE); PROTEIN URINE 70 mg/dL (NEGATIVE); SP GRAVITY URINE 1.006; TURBIDITY URINE CLEAR (CLEAR); UROBILINOGEN URINE NORMAL (NORMAL)
--- NOTE | 2019-07-14 04:24 | HISTORY AND PHYSICAL ---
ADDENDUM: PRIMARY CARE PHYSICIAN: Harpreet Ellison MD. HISTORY OF PRESENT ILLNESS: The patient is a 63-year-old male with a history of liver cirrhosis, being followed by a GI physician in [place], also a history of hypertension as well, who presents with abdominal swelling and noted to have low sodium on routine lab work. The patient states that he had a paracentesis done last Sunday, 5 days ago, where he had 5 L pulled during paracentesis. According to patient, he did not have any symptoms but was told to go to the [facility] ER to have lab work done. When he got there, his sodium was checked and he was noted to have hyponatremia of 118. He denied any confusion. He denies any weakness. Denies any disorientation. He states that since the paracentensis was done 5 days ago, he has been having progressively worsening abdominal swelling. Denies any abdominal pain. Denies any shortness of breath. He has baseline bilateral pedal edema which has remained the same and which has not changed. The patient was transferred from [facility] ER because of concern for the severe hyponatremia of 118. PHYSICAL EXAMINATION: GENERAL: Not in any acute distress CARDIOVASCULAR: S1 and S2 heard. No murmurs, rubs, or gallops. He has 2+ to 3+ bilateral pedal edema up to the knee. RESPIRATORY: Good air entry bilaterally. No wheeze. No crepitations. No added sound. ABDOMEN: His abdomen is severely swollen. It is tense. No area of tenderness noted. Bowel sounds are normoactive. NEUROLOGIC: The patient is alert, oriented x3. No gross focal neurological deficit. ASSESSMENT: He is a 63-year-old with a history of hypertension and liver cirrhosis with recent paracentesis of 5 L ascitic fluid that was pulled. The patient noted to have hyponatremia of 118. The plan for the patient will be to fluid restrict patient to help with improvement in his sodium level and also to give albumin challenge with 25% 50 g of IV albumin. These to help mobilize fluid from third spaces and intravascular volume. The patient will be scheduled for an abdominal ultrasound as well to ascertain if there is any good pocket of fluid may need to be tapped. The patient states his paracenteses are now gradually getting more frequent as initially he did it within a 6 month interval and then 3 months interval. It appears he most likely will require more frequent paracenteses. We will would hold off on Lasix for now given the hyponatremia. We will continue 50 mg of spironolactone as diuretics for now. We will monitor BMP closely and sodium q.6 hours to see improvement in his sodium level. We will introduce home diuretics to help with diuresis as sodium level improves. This is an addendum to the full H and P dictated by the nurse practitioner. I agree with the plan and orders placed. ANTOINETTE
[2019-07-14 04:25] LABS: UR EPITHELIAL CELLS <10 /HPF (<10); URINE BACTERIA NEGATIVE /HPF; URINE RBC <10 /HPF (<10); URINE WBC <10 /HPF (<10)
[2019-07-14 04:37] LABS: UR AMPHETAMINES QUAL NONE DETECTED (NONE DETECT); UR BARBITUATES QUAL NONE DETECTED (NONE DETECT); UR BENZODIAZEPIN QUAL NONE DETECTED (NONE DETECT); UR CANNABINOIDS QUAL NONE DETECTED (NONE DETECT); UR COCAINE QUAL NONE DETECTED (NONE DETECT); UR METHADONE QUAL NONE DETECTED (NONE DETECT); UR OPIATES QUAL NONE DETECTED (NONE DETECT); UR OXYCODONE QUAL NONE DETECTED (NONE DETECT); UR PCP QUAL NONE DETECTED (NONE DETECT)
[2019-07-14 06:09] LABS: AGAP 12; BUN 10 mg/dL (8-22); CHLORIDE 91 mmol/L (98-107); COSMO 242; CREATININE 0.9 mg/dL (0.7-1.2); ESTIMATED GFR > 60; GLUCOSE 83 mg/dL (70-104); POTASSIUM 4.5 mmol/L (3.5-5.1); SODIUM 121 mmol/L (136-145); TCO2 18 mmol/L (25-35)
[2019-07-14] MEDS ORDERED: ATIVAN IV PRN (06:21)
[2019-07-14] MEDS ORDERED: ZOFRAN IV PRN (06:24)
[2019-07-14 07:06] LABS: BASO# 0.05 X1000 (0.0-0.2); BASO% 0.6 % (0.0-0.8); EOS# 0.29 X1000 (0.0-0.7); EOS% 3.3 % (0.0-10.0); HEMATOCRIT 21.1 % (42.0-52.0); HEMOGLOBIN 6.5 g/dL (14.0-18.0); IMM GRAN# 0.04 X1000 (0.0-0.04); IMM GRAN% 0.5 % (0.0-0.5); LYMPH# 1.22 X1000 (1.2-3.4); LYMPH% 13.7 % (20.5-51.1); MCH 24.6 PG (27-31); MCHC 30.8 g/dL (33-37); MCV 79.9 FL (81-99); MONO# 0.95 X1000 (0.11-0.59); MONO% 10.7 % (1.7-9.3); MPV 8.7 FL (7.4-10.4); NEUT# 6.33 X1000 (1.4-6.5); NEUT% 71.2 % (42.2-75.2); PLT 293 X1000 (130-400); RBC 2.64 XMIL (4.7-6.1); RDW 14.3 % (11.5-14.5); WBC 8.88 X1000 (4.8-10.8)
--- NOTE | 2019-07-14 07:53 | HISTORY AND PHYSICAL ---
PRIMARY CARE PROVIDER: Dr. Harpreet Ellison. CHIEF COMPLAINT: Abnormal labs. HISTORY OF PRESENT ILLNESS: Mr. Barkley is a 63-year-old, obese male with a history of alcoholic cirrhosis, ascites and alcohol abuse. The patient states that last Sunday on July 08, he did see his gastroenterologists in [place]. They did do a paracentesis and reportedly pulled off 5 L of peritoneal fluid secondary to ascites. He states that since that time he has had some increased abdominal swelling, increased bilateral lower extremity edema, and has had a weight gain of 11 pounds. The patient states the reason why he presented to the ER at [facility] today was that he did have some outpatient labs that were ordered by his physician. They did call him and notify him that he needed to go to the ER due to his low sodium level. In the ER at [facility], the patient was noted to have some mild leukocytosis with a white blood cell count of 11.67. He denies any fever, body aches, or chills. He was anemic with a hemoglobin of 7.5, hematocrit of 23.8. He does have a history of anemia, though he denies any hematemesis, coffee- ground emesis, hematochezia or melena. He denies any history of gastrointestinal bleeding either. His sodium level was 118 upon check in the ER at [facility]. Given this as well as his increase in ascites, he was transferred to [facility] for further treatment and evaluation. The patient denies any headache, dizziness. He denies any chest pain. He denies any shortness of breath or cough. He also denies any nausea, vomiting or abdominal pain. He has reported that he has had diarrhea for approximately 4 days now. For the last 2 days, he reports he has had several episodes per day. He denied any recent antibiotic use. He denies any dysuria or urinary frequency. The patient has reported that he has chronic swelling in his bilateral lower extremities, this is worsened at this time. He denies any other pain, numbness, or tingling. He denies being around anyone, who was sick with respiratory symptoms or flu-like symptoms. 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 This would be his only known possible exposure to his knowledge. The patient does report daily alcohol abuse. States he drinks 4 to 5 beers per day. He does report that when he goes for periods of time without alcohol, he does have withdrawal symptoms. REVIEW OF SYSTEMS: A 14 point review of systems was conducted with the patient and all were negative except for pertinent positives mentioned above in HPI. PAST MEDICAL HISTORY: 1. Alcoholic cirrhosis. 2. Alcohol abuse. 3. History of ascites and paracentesis. 4. History of hypertension. 5. 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 6. Anemia. PAST SURGICAL HISTORY: 1. Hernia repair. 2. Cholecystectomy. FAMILY HISTORY: Positive for his mother having a history of cancer. Father in his 80s after becoming choked on a piece of pork. He did suffer cardiopulmonary arrest secondary to this. His mother had a history of unknown cancer as well. SOCIAL HISTORY: The patient currently lives with his ; as previously mentioned, she is a respiratory therapist here at [facility]. The patient is a nonsmoker. He denies any illicit drug use, though the patient states that he has had daily alcohol use for many years. In a previous H and P, it was noted that he previously drank 12 to 18 beers a day, though at this time he states he is drinking 4 to 6 beers a day. ALLERGIES: Patient reports allergy to simvastatin. HOME MEDICATIONS: 1. Lasix 40 mg p.o. daily. 2. Colace 100 mg p.o. b.i.d. 3. Magnesium oxide 400 mg p.o. b.i.d. 4. Multivitamin 1 p.o. daily. 5. The patient previously took Aldactone 25 mg p.o. b.i.d. This was increased in May to 50 mg p.o. b.i.d., though he states just recently his physician has told him to hold this medicine and not to take this at this time. So, he states currently he is not taking the Aldactone. DIAGNOSTIC DATA/LABORATORY RESULTS: White blood cell count 11,670, hemoglobin 7.5, hematocrit 23.8, platelet count is 428. PT 17.2, INR 1.38, PTT is 38.2. Sodium 118, potassium 4.9, chloride 87, serum bicarbonate 19. BUN 10, creatinine 1 GFR 60, glucose 117, calcium 8.2, phosphorus 3.5, magnesium 2. Total bilirubin 0.5, AST 42, ALT 13, alkaline phosphatase is 276. Serum alcohol was 76. Urine drug screen was negative. Urinalysis showed positive for protein and blood that was negative for glucose, ketones, nitrites, leukocytes, white blood cells or bacteria. PHYSICAL EXAMINATION: VITAL SIGNS: Temperature 97.9 degrees, heart rate 75, respirations 17, blood pressure is 155/75 with a MAP of 89, oxygen saturation is 100% on room air. GENERAL: Mr. Barkley is a pleasant, 63-year-old obese male, who is resting in the inpatient bed. He was in no acute distress. He was awake, alert, and able to answer questions appropriately. HEENT: Head is atraumatic, normocephalic. Left pupil was round, reactive, was 3 mm. Right pupil is misshapen, very small, less than 10 mm, though this is not of new onset. The patient did have a retinal hemorrhage secondary to trauma when he was a teenager, and does have loss of vision in his right eye secondary to this. He states his pupil has been misshapen since that time. Oral mucosa is moist. Oropharynx is clear. NECK: Supple. Trachea midline. CARDIOVASCULAR: Patient has S1, S2 present. No murmurs, gallops, rubs appreciated. Regular rate and rhythm. PULMONARY: Patient has symmetrical chest expansion bilaterally. Lung sounds are clear to auscultation in bilateral full ruelas. ABDOMEN: Firm, is distended, though he is nontender upon palpation. Bowel sounds were present in all 4 quadrants, were normoactive. EXTREMITIES: The patient does have 2+ to 3+ pitting edema noted in bilateral lower extremities. Though pulse, motor and sensory is intact in all extremities, radial and pedal pulses are 2+ bilaterally. Capillary refill is less than 3. INTEGUMENTARY: Patient's skin is pink, warm and dry. NEUROLOGICAL: Patient is alert and oriented to person, place, time and situation. He is able to move all extremities. There was no focal neurological deficits noted. ASSESSMENT/PLAN: 1. Hypervolemic, hypotonic hyponatremia. This is likely secondary to his liver disease, although the patient has reported that he has had some diarrhea over the last few days. He did receive 1 liter of normal saline in the emergency room at [facility], as well as 50 grams of intravenous albumin. The patient is on nothing by mouth at this time for paracentesis in the morning, though we will place him on fluid restrictions with 1500 mL of fluid daily. We will repeat a sodium level in the morning. We will continue to monitor this closely. 2. History of alcoholic cirrhosis. 3. History of ascites status post paracentesis on July 08, for which he reports he had 5 liters pulled off. The patient states that since that time he has had increased abdominal swelling, as well as increased bilateral lower extremity edema and weight gain of 11 pounds. We have ordered for him to have ultrasound-guided paracentesis in the morning. We have also ordered peritoneal fluid studies. We will await this and continue to follow. 4. Alcohol abuse. The patient states he is drinking 4 to 6 beers daily. He does have a history of having alcohol abuse for many years. We did group counselor the patient on the importance of him stopping drinking due to his liver disease. The patient states that he would like to quit. We will monitor him closely for any signs of alcohol withdrawal. We have placed orders for Ativan as needed. We will continue to monitor. 5. Diarrhea. The patient has reported that he has had diarrhea for the past 4 days with several episodes each day for the last 1 to 2 days. He denied any recent antibiotic use though and denied any hematochezia or melena, although he is anemic as well. Given this, we will go ahead and order some stool studies with a Hemoccult stool. We will await those results and continue to follow. 6. Anemia. The patient does have a history of this. We will repeat a complete blood count in the morning. We have ordered anemia profile as well. We have ordered Hemoccult stool as above. We will await these results and continue to follow. 7. Venous thromboembolism prophylaxis. He will be provided with sequential compression devices. The patient has been placed on PVC with telemetry. He will have vital signs q. 4 hours. We will do strict intake and output. He will be n.p.o. for his paracentesis in the morning. Further orders and recommendations pending hospital course, diagnostic studies, and physician evaluation. Dictated by SPRING Perez for Giuseppe Marlow MD
[2019-07-14] MEDS: ALDACTONE PO SCH (08:21)
[2019-07-14] MEDS ORDERED: NS 500 ML IV ONE (08:48)
--- NOTE | 2019-07-14 14:37 | GASTROENTEROLOGY CONSULTATION ---
DATE: 07/14/2019 REASON FOR CONSULT: Alcoholic liver cirrhosis/ascites. HISTORY OF PRESENT ILLNESS: Mr. Barkley is a 63-year-old, male with a history of alcoholic cirrhosis, ascites, and alcohol abuse. The patient mentioned that he had been to his GI doctor on Sunday and they did a paracentesis. Approximately 5 L of peritoneal fluid was aspirated. Requested for records. After the paracentesis, the patient has been complaining that he has been having abdominal pain, abdominal swelling, edema in the lower extremities, and gained approximately 11 pounds. The patient went to the [place] [facility] ER yesterday because he had to do some lab work. The patient complains of nausea but denied any vomiting. Currently denies any abdominal pain, but has occasional headaches. He mentioned that he had an EGD and colonoscopy done but does not remember when it was done and he said that the only thing they found out was that he had some polyps. When asked if there was anybody that was sick around him, he said that there was nobody sick around but his works as a respiratory therapist and she is the only one who he is around with. The patient has a history of drinking alcohol. He drinks 4 to 5 beers a day. Has denied smoking tobacco or use illicit drugs. Patient's H & H on admission was 7.5 and 23.8, today is it 6.5 and 21.1. PAST MEDICAL HISTORY: Alcoholic cirrhosis, alcohol abuse, history of ascites, s/p paracentesis, hypertension, retinal hemorrhage secondary to trauma causing loss of vision in the right eye, and anemia. PAST SURGICAL HISTORY: A hernia repair and cholecystectomy. ALLERGIES: The patient is allergic to simvastatin. SOCIAL HISTORY: The patient is , lives with his . He is an alcoholic. Drinks at least 4 to 6 beers per day. He has denied any tobacco or illicit drugs. HOME MEDICATIONS: Lasix 40 mg p.o. daily, magnesium oxide 40 mg p.o. twice a day, multivitamin 1 tablet daily, Robaxin 750 mg as needed, vitamin B12 with 2500 mcg p.o., docusate 100 mg p.o. twice a day, vitamin D3 at 125 mcg p.o., Aldactone 50 mg p.o. twice a day. REVIEW OF SYSTEMS: As per HPI. Otherwise, 12 point review of system is negative. PHYSICAL EXAMINATION: Vital Signs: Temperature 98.4 degrees, pulse 79, respirations 22, blood pressure 149/69, oxygen saturation 100% on room air. The patient's weight is 256 pounds. BMI is 40.1 kg/m2. General: He is alert, oriented x3, and in no acute distress. The patient is morbidly obese. HEENT: Pale conjunctivae. Retinal hemorrhage in the right eye. Neck: Supple. Lungs: Clear to auscultation. Cardiovascular: Regular rate and rhythm. Abdomen: Firm, distended, nontender. Hypoactive bowel sounds heard in all 4 quadrants. Extremities: No clubbing. No cyanosis. There is 2+ pitting edema in the bilateral extremities. Lower extremities, pedal pulses 1+ present. Neurologic: Alert and oriented x3. Nonfocal. Cranial nerves 2 to 12 grossly intact. LABS: WBCs are 8.88, RBCs 2.64, hemoglobin is 6.5, hematocrit is 21.1, platelet count is 293,000. PT is 17.2, INR is 1.38. Sodium is 121, potassium 4.5, chloride is 91, carbon dioxide is 18, anion gap is 12, BUN is 10, creatinine is 0.9, glucose is 83, calcium is 8.0, phosphorus 3.5, magnesium 2.0. Total bilirubin is 0.50, AST 42, ALT 13, alkaline phosphatase 276, albumin is 2.8. Urinalysis showed protein of 70, moderate amount of blood. Toxicology report has shown alcohol level of 76. IMPRESSION AND PLAN: 1. Alcoholic cirrhosis. 2. Alcoholism. 3. Ascites. 4. Worsening Anemia required Blood transfusion. 5. Hypertension. 6. Obesity. PLAN: Mr. Barkley is a 63-year-old, male with a history of alcoholic cirrhosis. GI is following him for his alcoholic cirrhosis and ascites. We plan to do an EGD tomorrow to find out the cause of his worsening anemia. His H & H today is 6.5 and 21.1, he has so far received 1 unit of blood. The patient is having an ultrasound-guided paracentesis today and we will order fluid studies. We will continue him on PPI's daily. We have discussed the risks, benefits, and alternatives of the procedure to the patient. Further plan of care will be based on the EGD findings. We will continue to monitor the patient and follow the plan of care per PCP. This plan was discussed with Dr. Suarez. Thank you for your consult. Please call us for any further questions or concerns. Dictated by SPRING Love for Angel Suarez MD cc: Angel Suarez MD I have seen and examined the patient myself and I agree with the above plan of care. Please call us with any further questions or concerns. ANTOINETTE
--- NOTE | 2019-07-14 15:47 | Diag Imaging Result Doc PS360 ---
EXAM: US ABD PARACENTESIS W S/I 07/14/2019 HISTORY: Ascites TECHNIQUE: Ultrasound-guided paracentesis COMMENT: The risks and benefits of the procedure including the possibility of bleeding, infection, reaction to lidocaine, or inadvertent puncture of hollow viscus was discussed with patient and he agreed to the procedure. Following sterile preparation the skin and administration 1% lidocaine to the skin and deeper soft tissues the paracentesis catheter was placed laterally on the right and 7.6 L of straw-colored fluid was drained and sent to the laboratory in its entirety. IMPRESSION: Successful ultrasound-guided paracentesis. Electronically signed by Federico Drew 07/14/2019 3:45 PM
[2019-07-14 16:24] LABS: BODY FLUID SOURCE PERITONEAL FLUID; WBC BF 230 /cumm
[2019-07-14 16:25] LABS: MONOS 79 %; POLYS 21 %
[2019-07-14 16:45] LABS: GLUCOSE BODY FLUID 89 mg/dL; LDH BODY FLUID 77 U/L
[2019-07-15 05:54] LABS: BASO# 0.05 X1000 (0.0-0.2); BASO% 0.5 % (0.0-0.8); EOS# 0.17 X1000 (0.0-0.7); EOS% 1.7 % (0.0-10.0); HEMATOCRIT 28.7 % (42.0-52.0); IMM GRAN# 0.04 X1000 (0.0-0.04); IMM GRAN% 0.4 % (0.0-0.5); LYMPH# 1.23 X1000 (1.2-3.4); LYMPH% 12.3 % (20.5-51.1); MCH 25.6 PG (27-31); MCHC 31.4 g/dL (33-37); MCV 81.8 FL (81-99); MONO# 0.88 X1000 (0.11-0.59); MONO% 8.8 % (1.7-9.3); MPV 8.7 FL (7.4-10.4); NEUT# 7.67 X1000 (1.4-6.5); NEUT% 76.3 % (42.2-75.2); PLT 287 X1000 (130-400); RBC 3.51 XMIL (4.7-6.1); RDW 14.9 % (11.5-14.5); WBC 10.04 X1000 (4.8-10.8)
[2019-07-15 05:55] LABS: INR 1.49; PROTIME 18.3 Seconds (11.0-16.0)
[2019-07-15 06:27] LABS: AGAP 11; ALKALINE PHOSPHATASE 207 U/L (32-122); BUN 12 mg/dL (8-22); CALCIUM 8.6 mg/dL (8.8-10.2); CHLORIDE 97 mmol/L (98-107); COSMO 260; ESTIMATED GFR > 60; GLUCOSE 93 mg/dL (70-104); GOT 26 U/L (10-34); GPT 9 U/L (10-44); POTASSIUM 4.4 mmol/L (3.5-5.1); SODIUM 130 mmol/L (136-145); TCO2 22 mmol/L (25-35); TOTAL BILIRUBIN 1.62 mg/dL (0.20-1.00)
[2019-07-15 06:28] LABS: IRON SATURATION 67 %; TIBC 196 ug/dL; TOTAL IRON 131 ug/dL (53-167); UNBOUND IRON 65 ug/dL (112-346)
[2019-07-15 06:39] LABS: FERRITIN 56 ng/mL (30-400)
[2019-07-15] MEDS ORDERED: PRILOSEC PO SCH ×2 (07:00→18:00)
[2019-07-15] MEDS ORDERED: DIPRIVAN 1% ONE (08:25)
[2019-07-15] MEDS ORDERED: CALCIUM CHLORIDE SYRINGE ONE (08:29)
[2019-07-15] MEDS ORDERED: XYLOCAINE-MPF 2% ONE (08:29)
--- NOTE | 2019-07-15 09:07 | ENDOSCOPY OPERATIVE NOTE ---
[facility] ENDOSCOPY OPERATIVE NOTE , EGD PROCEDURE REPORT EXAM DATE: 07/15/2019 PATIENT NAME: Thomas Barkley MR#: [id number] BIRTHDATE: 1955 ATTENDING: Gilberto John MD STATUS: inpatient SECURITY POLICE OFFICER: INDICATIONS: The patient is a 63 yr old male here for an EGD due to anemia and Decompensated ETOH ci rrhosis with ascites. PROCEDURE PERFORMED: EGD, diagnostic MEDICATIONS: Per Anesthesia ESTIMATED BLOOD LOSS: None CONSENT: The patient understands the risks and benefits of the procedure and understands that these r isks include, but are not limited to: sedation, allergic reaction, infection, perforation and/or bleeding. Alternative means of evaluation and treatment include, among others: physical exam, x-rays, and/or surgical intervention. The patient elects to proceed with this endoscopic procedure. DESCRIPTION OF PROCEDURE: During pre-op preparation period all mechanical and medical equipment was c hecked for proper function. Hand hygiene and appropriate measures for infection prevention was taken. After the risks, benefits and alternatives of the procedure were thoroughly explained, Informed consent was verified, confirmed and timeout was successfully executed by the treatment team. The patient was anesthetized with topical anesthesia and the [id number] ([id number]) endoscope was introduced through the mouth and advanced to the second portion of the duoden um. Retroflexion was performed in the stomach and revealed no abnormalities. The gastroscope was then slowly withdraw n and removed. The patient's toleration of the procedure was excellent. ESOPHAGUS: There were 2 columns of small (Grade I) varices in the lower third of the esophagus. STOMACH: Mild portal hypertensive gastropathy was found. Four punctate and shallow erosions were fo und in the gastric antrum. No gastric varices. DUODENUM: The duodenal mucosa showed no abnormalities. ADVERSE EVENTS: There were no complications. IMPRESSIONS: 1. There were 2 columns of small esophageal varices and varices in the lower third of the esophagus 2. Portal hypertensive gastropathy was found 3. Four erosions were found in the gastric antrum, which likely represents source of anemia. 4. The duodenal mucosa showed no abnormalities RECOMMENDATIONS: 1. Advance diet as tolerated 2. Avoid NSAIDs and blood thinners 3. Start nadolol 20mg PO once daily, titrate for HR 55-60 4. Recommend PPI PO BID for 3 months, then once daily 5. Check H pylori IgG. If positive, then treat empirically with triple therapy for 14 days. REPEAT EXAM: Gilberto John MD eSigned: Gilberto John MD 07/15/2019 9:07 AM CC: CPT CODES: 58067 Upper gastrointestinal endoscopy including esophagus, stomach, and either the du odenum and/or jejunum as appropriate; diagnostic, with or without collection of specimen(s) by brushing or washing (separate procedure) ICD CODES: 285.9 anemia,unspecified The ICD and CPT codes recommended by this software are interpretations from the data that the [facility] staff has captured with the software. The verification of the translation of this report to the ICD and CPT co teri and modifiers is the sole responsibility of the health care institution and practicing physician where this report was generated. [employer] will not be held responsible for the validity of the ICD and CPT codes i ncluded on this report. A assumes no liability for data contained or not contained herein. CPT is a registered tra demark of the [employer]. PATIENT NAME: Thomas Barkley MR#: [id number]
[2019-07-15] MEDS: ALDACTONE PO SCH (10:20)
[2019-07-15] MEDS: ROCEPHIN 1 GM in NS 50 ML IV SCH (10:21)
--- NOTE | 2019-07-15 10:42 | PROGRESS NOTE ---
DATE: 07/15/2019 INTERVAL HISTORY: Mr. Barkley underwent an EGD which had gastric erosions. He has not had any hematemesis or melena as per the history given to me by him. SUBJECTIVE: Mr. Barkley denies any chest pain, shortness of breath. He denies any nausea, vomiting, or abdominal pain. REVIEW OF SYSTEMS: Negative for melena. Negative for hematemesis. Negative for confusion. VITALS: Temperature 98 degrees, pulse 74, respiratory rate 18, blood pressure 130/45, saturating 100% on room air. PHYSICAL EXAMINATION: Mr. Barkley is not in acute distress. He is morbidly obese. Oral cavity is moist. Air entry bilaterally equal. No wheeze, rhonchi, crackles. Cardiovascular: S1, S2 normal. No murmur, rub, or gallop. Abdomen is distended, soft. Dullness to percussion on the flanks. He has bilateral lower extremity edema. He is alert and oriented x3. LABS: Suggestive of hemoglobin of 9, platelets of 287,000. INR of 1.4. His sodium is 130, chloride 97. MICROBIOLOGY: The peritoneal fluid has not shown any growth and Gram stain did not have any bacteria. ASSESSMENT AND PLAN: 1. Hypervolemic, hypotonic hyponatremia due to cirrhosis, now improved. Follow up with daily BMP. 2. Alcoholic cirrhosis with ascites, status post 7 L of paracentesis. He also received intravenous albumin. Continue him on spironolactone and we will add Lasix with close monitoring of his BMP. 3. Acute blood loss anemia with esophageal varices, portal gastropathy, and gastric erosions. His gastric erosions could be the source of his blood loss, though he did not have any documented fecal occult. I will continue proton pump inhibitors twice a day and start him on nadolol for prevention of esophageal variceal bleeding. 4. Alcohol abuse. Patient was counseled about stopping alcohol use. He understood it. 5. Others. I will start patient on iron supplement for his anemia. He is also status post 2 units of packed red blood cell transfusion. 6. Disposition. Monitor patient inside the hospital for another 24 hours. Plan of care discussed with him. His questions have been answered. cc: Stanislaw Ye MD
[2019-07-15] MEDS: LASIX PO SCH (10:55)
[2019-07-15] MEDS: THERA M PLUS PO SCH (10:55)
[2019-07-15] MEDS: FERROUS SULFATE PO SCH (10:55)
[2019-07-15] MEDS: CORGARD PO SCH (10:55)
[2019-07-16 06:03] LABS: BASO# 0.05 X1000 (0.0-0.2); BASO% 0.5 % (0.0-0.8); EOS# 0.53 X1000 (0.0-0.7); EOS% 5.1 % (0.0-10.0); HEMOGLOBIN 8.6 g/dL (14.0-18.0); IMM GRAN# 0.04 X1000 (0.0-0.04); IMM GRAN% 0.4 % (0.0-0.5); LYMPH# 1.29 X1000 (1.2-3.4); LYMPH% 12.3 % (20.5-51.1); MCH 25.6 PG (27-31); MCHC 30.7 g/dL (33-37); MCV 83.3 FL (81-99); MONO% 8.6 % (1.7-9.3); MPV 8.9 FL (7.4-10.4); NEUT# 7.66 X1000 (1.4-6.5); NEUT% 73.1 % (42.2-75.2); PLT 274 X1000 (130-400); RBC 3.36 XMIL (4.7-6.1); RDW 14.9 % (11.5-14.5); WBC 10.47 X1000 (4.8-10.8)
[2019-07-16 07:02] LABS: AGAP 10; BUN 12 mg/dL (8-22); CALCIUM 8.4 mg/dL (8.8-10.2); CHLORIDE 97 mmol/L (98-107); COSMO 264; CREATININE 1.1 mg/dL (0.7-1.2); ESTIMATED GFR > 60; GLUCOSE 133 mg/dL (70-104); MAGNESIUM 1.6 mg/dL (1.5-2.7); SODIUM 131 mmol/L (136-145); TCO2 24 mmol/L (25-35)
[2019-07-16 07:29] VITALS: BP 149/66
[2019-07-16] MEDS ORDERED: PROTONIX [NONFORMULARY] PO SCH (09:00)
[2019-07-16] MEDS: CORGARD PO SCH (09:05)
[2019-07-16] MEDS: FERROUS SULFATE PO SCH (09:05)
[2019-07-16] MEDS: ROCEPHIN 1 GM in NS 50 ML IV SCH (09:05)
[2019-07-16] MEDS: THERA M PLUS PO SCH (09:05)
[2019-07-16] MEDS: ALDACTONE PO SCH (09:05)
[2019-07-16] MEDS: LASIX PO SCH (09:05)
--- NOTE | 2019-07-16 11:48 | DISCHARGE SUMMARY ---
ADMISSION DATE: 07/13/2019 DISCHARGE DATE: 07/16/2019 DISCHARGE DISPOSITION: Home. DISCHARGE CONDITION: Hemodynamically stable. His hemoglobin has remained stable. He has not had any bloody bowel movement. He was counseled about taking iron, antacid medication, nadolol. He was counseled about taking diuretics and have a followup with his regular physician as well as outpatient GI physician within a week's time, or at least get lab tests for repeat electrolytes done within 5 to 7 days' time. DISCHARGE DIAGNOSES: 1. Hypervolemic, hypotonic hyponatremia due to volume overload due to liver cirrhosis. 2. Alcoholic cirrhosis with ascites requiring paracentesis. 3. Active alcohol abuse. 4. Acute blood loss anemia, which could be from gastric erosions. 5. Mild esophageal varices and portal gastropathy. OTHER DIAGNOSES: 1. History of alcoholic cirrhosis. 2. History of essential hypertension. 3. History of retinal hemorrhage secondary to trauma causing loss of vision in his right eye. 4. History of ascites requiring outpatient paracentesis. DISCHARGE MEDICATIONS: 1. Docusate 100 mg b.i.d. 2. Multivitamin 1 tablet daily. 3. Methocarbamol 750 mg as needed. 4. Vitamin B12 with 25 mcg orally. 5. Vitamin D3 with 125 mcg orally. However, vitamin D3, vitamin B12, and Robaxin could not be confirmed. 6. Spironolactone 50 mg b.i.d. 7. Nadolol 20 mg daily. 8. Ferrous sulfate 325 mg daily, 30 tablets have been prescribed. 9. Furosemide 40 mg daily. 10. Magnesium oxide 400 mg b.i.d. 11. Pantoprazole 40 mg daily, 45 tablets have been prescribed. VITALS: At the time of discharge, temperature 98.1 degrees, pulse 88, respiratory rate 18, blood pressure 149/60, saturating 100% on room air. PHYSICAL EXAMINATION: Mr. Barkley is not in acute distress. Oral cavity is moist. Air entry bilaterally equal. No wheeze, rhonchi, or crackles. S1, S2 normal. Regular. No murmur, rub, or gallop. Abdomen is distended, soft, nontender, dull to percussion over flanks. He has bilateral lower extremity edema. He is alert and oriented x3. LABS: At the time of hospital admission and discharge, hemoglobin is 8.6 which improved from 6.5 on July 13, platelets of 274,000. Sodium 131, chloride 97, BUN 12, creatinine 1.1, calcium is 8.6. PROCEDURES DURING HOSPITALIZATION: Patient underwent ultrasound-guided paracentesis on 07/14/2019 with 7 L of fluid removed. Peritoneal fluid analysis suggested WBC of 230 which was 79% mononuclear. His LDH was 77, total protein was 2, suggestive of portal hypertension. His plasma alcohol on presentation was 76. MICROBIOLOGY: Peritoneal fluid culture did not have any growth. Gram stain had a few WBCs without any bacteria. BLOOD TRANSFUSIONS DURING HOSPITAL ADMISSION: Two units. IMAGING DURING HOSPITAL ADMISSION: None. Patient underwent ultrasound-guided paracentesis with 7 L of fluid removed on July 13. CONSULTATIONS DURING HOSPITAL ADMISSION: Gastroenterology, Dr. John. HOSPITAL COURSE SUMMARY: Mr. Barkley is a 63-year-old, man with a history of alcoholic cirrhosis with ascites requiring outpatient paracentesis, who came in on 07/13/2019 with a chief complaint of abnormal labs. Apparently, the patient has been experiencing increasing abdominal swelling associated with lower extremity edema and had weight gain of about 11 pounds, so he went initially to [facility] since his outpatient provider had called him with an abnormally low sodium level. In the emergency room at [facility], he was found to have a temperature of 98 degrees, pulse of 84, respiratory rate of 18, blood pressure of 155/64, and he was saturating 99% on room air. His labs had detected hemoglobin of 7.5, which on repeat testing a few hours later had dropped to 6.5. His initial sodium was 118, chloride was 87. He also had massive abdominal ascites and lower extremity edema. It was thought that his hyponatremia was due to hypervolemia due to ascites and liver cirrhosis. He was started on a diuretic regimen with spironolactone and Lasix, and underwent paracentesis. He was also given intravenous albumin after paracentesis. After intravenous albumin, paracentesis, and diuretic, his sodium level improved. At the time of discharge, it was 131. Patient was advised to have repeat sodium level done within 5 days of discharge. The patient had started developing a dropping of hemoglobin from 7.5 on admission to 6.5 at the time of discharge, so GI was consulted. He underwent EGD on 07/15/2019. EGD detected 2 columns of small esophageal varices and varices in the lower third of the esophagus, portal hypertensive gastropathy, 4 erosions in the gastric antrum which were likely the source of anemia, duodenal mucosa showed no abnormality. The patient will be discharged on the above-mentioned prescriptions. He was advised to have outpatient followup with Dr. John and discussed about the H. pylori testing results done. However, the stool antigen could not be collected since the patient did not have a bowel movement and was advised to have a followup with his regular physician as well as a GI doctor. Thirty-five minutes were spent discharging the patient. Plan of care was discussed extensively discussed with him. He was allowed to ask questions. All of his questions were satisfactorily answered. He was extensively counseled about quitting alcohol. cc: Stanislaw Ye MD
--- NOTE | 2019-07-16 15:36 | GASTROENTEROLOGY PROGRESS NOTE ---
DATE: 07/16/2019 SUBJECTIVE: Mr. Barkley is a 63-year-old male. He was resting in bed. The patient has denied any nausea, vomiting, or abdominal pain. The patient said that he was feeling much better. OBJECTIVE: Vital Signs: Temperature 98.1 degrees, pulse 68, respirations 18, blood pressure 149/66, oxygen saturation 100% on room air. The patient's weight is 224 pounds. BMI is 35.1 kg/m2. General: He is alert, oriented x3 in no acute distress. HEENT: Pale conjunctivae. Retinal hemorrhage in the right eye. Neck: Supple. Lungs: Clear to auscultation. Cardiovascular: Regular rate and rhythm. Abdomen: Firm, distended, nontender. Hypoactive bowel sounds heard in all 4 quadrants. Extremities: No clubbing, no cyanosis, 2+ pitting edema in the lower extremities. Neurologic: Alert and oriented x3. LABS: WBCs are 10.47, RBC is 3.36, hemoglobin is 8.6, hematocrit is 28.0, platelet count is 274,000. Sodium is 131, potassium is 4.09, chloride is 97, carbon dioxide 24, anion gap 10, BUN 12, creatinine 1.1, glucose is 133, calcium is 8.4, magnesium is 1.6. EGD FINDINGS: Esophagus showed 2 columns of small esophageal varices and varices in the lower third of the esophagus. Portal hypertensive gastropathy. Four erosions found in the gastric antrum representing the source of anemia. Duodenal mucosa showed no abnormalities. IMPRESSION AND PLAN: 1. Alcoholic cirrhosis 2. Esophageal varices 3. Portal hypertensive gastropathy 4. Gastric erosions 5. Acute blood loss anemia 6. Ascites 7. Alcoholism 8. Hypertension PLAN: Mr. Barkley is a 63 year male with a history of alcoholic cirrhosis. GI has been following him for his alcoholic cirrhosis and ascites. An EGD was done and the patient had esophageal varices, portal hypertensive gastropathy and gastric erosions. The patient has been started on nadolol 20 mg p.o., hold for heart rate less than 55. Patient to continue PPIs for 3 months. His pathology report is pending. The patient needs to follow up as an outpatient in 4 weeks. The patient is having discharge orders to go home. We will follow up with the patient as an outpatient in 4 weeks. This plan was discussed with Dr. John. please call us for any further questions or concerns. Dictated by [employer] for Gilberto John MD Physician Attestation I have seen and examined the patient. I have discussed and reviewed the note by Ginny LONDONO and agree with findings and plan as documented. [facility]
== END 2019-07-16 13:05 | disposition home or self-care (01) | DRG 433 ==
LOC: P.ED 18:41 → INTOOBSV 21:32 → 3N 21:32 → SUATTDRO 21:32
PROVIDERS: ATTEND Internal Medicine

== ENCOUNTER 2019-07-29 17:23 | Inpatient (IN) ==
[2019-07-29] MEDS ORDERED: NS 1,000 ML IV ONE ×2 (17:30→19:23)
--- NOTE | 2019-07-29 17:43 | PROVIDER DOCUMENTATION ---
HPI-General Adult - General Stated Complaint: ABNORMAL LABS Time Seen by Provider: 07/29/19 17:28 Source: patient Allergies/Adverse Reactions: Patient Allergies Allergy/AdvReac Type Severity Reaction Status Date / Time simvastatin Allergy Intermediate HIVES Verified 07/29/19 18:42 Home Medications: Home Medication List Medication Instructions Recorded Confirmed Last Taken Type Magnesium Oxide [Mag-Ox] 400 mg PO BID tab 11/28/18 07/13/19 Unknown Rx Multivitamin [Multivitamins] 1 ea PO DAILY 07/13/19 07/13/19 Unknown History Cholecalciferol (Vitamin D3) 125 mcg PO 07/14/19 Unknown History [Vitamin D3] Cyanocobalamin (Vitamin B-12) 2,500 mcg PO 07/14/19 Unknown History [Vitamin B12] Docusate Sodium [Colace] 100 mg PO BID 07/14/19 07/14/19 Unknown History Methocarbamol [Robaxin-750] 750 mg PO PRN 07/14/19 Unknown History Ferrous Sulfate 325 mg PO DAILY #30 tab 07/16/19 Unknown Rx Furosemide [Lasix] 40 mg PO DAILY #30 tab 07/16/19 Unknown Rx Nadolol [Corgard] 20 mg PO DAILY #30 tab 07/16/19 Unknown Rx Pantoprazole [Protonix 40 mg PO DAILY #45 tab 07/16/19 Unknown Rx [Nonformulary]] Spironolactone [Aldactone] 50 mg PO BID #60 tab 07/16/19 Unknown Rx - History of Present Illness -Gen Adult Nature of Presenting Problems: 64 YOM with PMH of hyponatremia, etoh abuse, cirrhosis presents with low Na, per Dr. Ellison from labs today. Na notes 114. He reports hx of recent paracentesis with 7 L removed. He denies tremors, seizures, confusion, n/v/d. He does continue to drink beer daily. Location of Pain/Injury: reports: none Pain Radiation: reports: no radiation Quality of Pain: reports: none Severity: reports: moderate Onset/Duration: reports: unsure (sent in today) Timing: reports: still present Modifying Factors: improves with: nothing Associated Symptoms: reports: denies symptoms Similar Symptoms Previously?: Yes Recently seen or treated by another doctor?: Yes (Dr. Ellison PCP) Review of Systems - Adult - REVIEW OF SYSTEMS - ADULT Constitutional: reports: no symptoms reported. denies: chills, fever Eyes: reports: no symptoms reported. denies: decreased vision, blurred vision, double vision, eye pain Ears, Nose, Mouth & Throat: reports: no symptoms reported. denies: sinus problem, mouth/dental pain, mouth swelling Cardiovascular: reports: no symptoms reported. denies: chest pain, orthopnea, PND Respiratory: reports: no symptoms reported. denies: cough, shortness of breath, wheezing Gastrointestinal: reports: no symptoms reported. denies: abdominal pain, diarrhea, nausea, vomiting Genitourinary: reports: no symptoms reported. denies: see HPI, dysuria, discharge, frequency, flank pain, frequent UTI's, hematuria, hesitency, incontinence, urinary retention, urgency, other Musculoskeletal: reports: no symptoms reported. denies: see HPI, bone pain, back pain, frequent leg cramps, joint pain, joint swelling, muscle aches, muscle weakness, neck pain, other Integumentary: reports: no symptoms reported. denies: see HPI, hives, hair loss, itching, mole changes, nail changes, rash, skin sores/ulcer, skin thickening, other Neurological: reports: no symptoms reported. denies: see HPI, ataxia, dizziness/vertigo, headache/migraines, loss of balance, numbness, paresthesia, seizure, slurred speech, syncope, tremors, other Psychiatric: reports: no symptoms reported. denies: see HPI, anxiety, anti- depressant use, alcohol/drug dependence, depression, emotional problems, insomnia, panic attacks, suicidal thoughts, other Endocrine: reports: no symptoms reported. denies: see HPI, change in skin pigment, excessive sweating, goiter, cold intolerance, heat intolerance, increased hunger, increased thirst, polyuria, other Hematologic/Lymphatic: reports: no symptoms reported. denies: see HPI, blood clots, easy bruising, low blood count, lymphedema, prolonged bleeding, swollen lymph nodes, transfusions, other Allergic/Immunologic: reports: no symptoms reported. denies: see HPI, allergic reactions, allergic rhinitis, asthma, eczema, food allergy, frequent infections, hay fever, hives, positive PPD, urticaria, other Past History - Adult - PAST MEDICAL HISTORY-ADULT Review of Records: reports: Nursing Assessment Review, Social history reviewed & non-contributory. Major Childhood Illnesses: reports: denies history Cardiovascular: reports: HTN Respiratory: reports: denies history Gastrointestinal: reports: denies history Obstetrical/Gynecological: reports: denies history Genitourinary: reports: denies history Musculoskeletal: reports: denies history Neurological: reports: denies history Psychiatric: reports: denies history Endocrine/Immune: reports: denies history Other Conditions: reports: denies history - PRIOR SURGERIES/PROCEDURES Surgical/Procedure History: reports: cholecystectomy - PRIOR HOSPITALIZATIONS Prior Hospitalizations: reports: none - IMMUNIZATION STATUS Childhood Immunizations: See Nurse Assessment Flu Vaccine: See Nurse Assessment - FAMILY HISTORY Family History: reviewed, not pertinent Physical Exam-General - PHYSICAL EXAM-ADULT Initial Vital Signs Reviewed: Yes - CONSTITUTIONAL General Appearance: appears well, alert, no apparent distress - EYES Eyes: PERRL/EOMI, pink conjunctivae - HEAD, EARS, NOSE, MOUTH & THROAT HENMT: normocephalic/atraumatic, moist mucous membranes, normal ENT inspection - NECK Neck: non-tender, full range of motion, supple - RESPIRATORY Respiratory: chest non-tender, lungs clear, normal breath sounds, no pleuratic chest pain, no respiratory distress, no accessory muscle use - CARDIOVASCULAR Cardiovascular: normal peripheral pulses, regular rate, rhythm, no gallop, no JVD, no murmur. negative: no edema (BLE edema) - GASTROINTESTINAL (ABDOMEN) Abdominal Exam: normal bowel sounds, non tender, soft, no organomegaly, no pulsatile mass, distended - LYMPHATIC Lymphatic: no adenopathy - MUSCULOSKELETAL Back Exam: normal inspection, no CVA tenderness, no vertebral tenderness Extremity: normal range of motion, non-tender, normal gait, normal inspection, no pedal edema, no calf tenderness Peripheral Pulses: radial (R): 2+, radial (L): 2+ - SKIN Integumentary: normal color, normal turgor, warm/dry - NEUROLOGIC Neurologic: grossly normal - PSYCHIATRIC Psych/Mental Status: normal mood/affect, oriented x 3 Progress - PLAN OF CARE/RESULTS Progress/Plan/Lab Results: Vital Signs - 8 hr 07/29/19 17:33 Temperature 98.6 F Pulse Rate 60 Respiratory Rate 18 Blood Pressure 148/77 O2 Sat by Pulse Oximetry 99 Orders Category Date Time Status Saline Loc NOW Care 07/29/19 17:30 Active ALCOHOL BLOOD Stat Lab 07/29/19 17:38 Uncollected CBC WITH ELECTRONIC DIFF [HEME] Stat Lab 07/29/19 17:29 Uncollected COMPREHENSIVE METABOLIC PANEL [CHEM] Stat Lab 07/29/19 17:29 Uncollected UA NIMS W/REFLEX CULT [URINALYSIS] Stat Lab 07/29/19 17:29 Uncollected UR SODIUM [URCHEM] Stat Lab 07/29/19 17:29 Uncollected 0.9% Sodium Chloride Inj [Ns] 1,000 ml Med 07/29/19 17:30 Active IV 250 mls/hr Result Diagrams: 07/29/19 17:57 07/29/19 17:57 - CONSULTS/PCP/HOSPITALIST Notification #1 *Consult/PCP/Hospitalist*: Dr. Sharad Parry Discussed: 19:18 Consult Disposition: other (refer to DG main due to critital Na and need for frequent monitoring and possible paracentsis) #2 Consult: Dr. Myron Parry Discussed: 19:25 Consult Disposition: Admit Departure - Departure Date of Disposition Decision: 07/29/19 Time of Disposition Decision: 19:26 DIAGNOSIS: Hyponatremia, Ascites, Edema, ETOH abuse, Anemia Disposition: ADMITTED INPATIENT 09 Certified Medical Emergency: Emergent Condition: Stable Referrals and Follow-Ups: Harpreet Ellison MD [Primary Care Provider] - - Critical Care Note This patient required my direct & personal management of CC.: No Attestation - Physician/ SUMEET Attestation Patient care was provided by Advanced Practice Provider:: Yes Advanced Practice Provider:: Glory Vega Advanced Practice Provider documentation review:: The Mid-level provider documentation, treatment plan and medical decision making was reviewed by the physician who agrees with all treatment and medical decision making by the MLP. The physician spent face to face time with patient:: Yes (Dr. Vigil) Advanced Practice Provider documentation review:: Supervising physician onsite and consulted in the evaluation and care of this patient. The physician did have a face to face encounter with the patient.
[2019-07-29 18:12] LABS: BASO% 0.7 % (0.0-0.8); EOS# 0.58 X1000 (0.0-0.7); EOS% 4.3 % (0.0-10.0); HEMATOCRIT 28.8 % (42.0-52.0); HEMOGLOBIN 9.4 g/dL (14.0-18.0); IMM GRAN# 0.07 X1000 (0.0-0.04); IMM GRAN% 0.5 % (0.0-0.5); LYMPH# 1.75 X1000 (1.2-3.4); LYMPH% 12.9 % (20.5-51.1); MCH 26.5 PG (27-31); MCHC 32.6 g/dL (33-37); MCV 81.1 FL (81-99); MONO# 1.09 X1000 (0.11-0.59); MPV 9.5 FL (7.4-10.4); NEUT% 73.6 % (42.2-75.2); PLT 460 X1000 (130-400); RBC 3.55 XMIL (4.7-6.1); RDW 15.5 % (11.5-14.5); WBC 13.59 X1000 (4.8-10.8)
[2019-07-29 18:43] LABS: ESTIMATED GFR > 60
[2019-07-29 18:49] LABS: AGAP 12; ALBUMIN 3.1 g/dL (3.5-5.0); ALKALINE PHOSPHATASE 249 U/L (32-122); BUN 13 mg/dL (8-22); CALCIUM 8.8 mg/dL (8.8-10.2); CHLORIDE 81 mmol/L (98-107); COSMO 231; GLUCOSE 98 mg/dL (70-104); GOT 30 U/L (10-34); GPT 11 U/L (10-44); SODIUM 114 mmol/L (136-145); TCO2 21 mmol/L (25-35); TOTAL PROTEIN 7.1 g/dL (6.3-8.3)
[2019-07-29 19:22] LABS: URINE SOURCE CLEAN CATCH
[2019-07-29 19:38] LABS: BILIRUBIN URINE NEGATIVE (NEGATIVE); BLOOD URINE MODERATE (NEGATIVE); COLOR YELLOW; GLUCOSE URINE NEGATIVE (NEGATIVE); KETONE URINE NEGATIVE (NEGATIVE); LEUKOCYTES URINE NEGATIVE (NEGATIVE); NITRITE URINE NEGATIVE (NEGATIVE); PH URINE 6.5; PROTEIN URINE 50 mg/dL (NEGATIVE); SP GRAVITY URINE 1.006; TURBIDITY URINE CLEAR (CLEAR); UROBILINOGEN URINE NORMAL (NORMAL)
[2019-07-29 19:39] LABS: UR EPITHELIAL CELLS <10 /HPF (<10); URINE BACTERIA NEGATIVE /HPF; URINE RBC 20-40 /HPF (<10); URINE WBC <10 /HPF (<10)
[2019-07-30 02:26] LABS: BASO# 0.09 X1000 (0.0-0.2); BASO% 0.7 % (0.0-0.8); EOS# 0.48 X1000 (0.0-0.7); EOS% 3.7 % (0.0-10.0); HEMATOCRIT 27.9 % (42.0-52.0); HEMOGLOBIN 9.2 g/dL (14.0-18.0); IMM GRAN# 0.06 X1000 (0.0-0.04); IMM GRAN% 0.5 % (0.0-0.5); LYMPH# 1.26 X1000 (1.2-3.4); LYMPH% 9.6 % (20.5-51.1); MCH 26.7 PG (27-31); MCV 81.1 FL (81-99); MONO% 7.6 % (1.7-9.3); MPV 9.4 FL (7.4-10.4); NEUT# 10.24 X1000 (1.4-6.5); NEUT% 77.9 % (42.2-75.2); PLT 421 X1000 (130-400); RBC 3.44 XMIL (4.7-6.1); RDW 15.8 % (11.5-14.5); WBC 13.13 X1000 (4.8-10.8)
[2019-07-30 02:29] LABS: INR 1.31; PROTIME 16.5 Seconds (11.0-16.0)
[2019-07-30 02:30] LABS: PTT 40.6 Seconds (22.3-41.8)
[2019-07-30] MEDS ORDERED: TYLENOL PO PRN (02:39)
[2019-07-30] MEDS ORDERED: ZOFRAN IV PRN (02:39)
[2019-07-30] MEDS ORDERED: ATIVAN IV PRN (02:49)
[2019-07-30 03:00] LABS: AGAP 12; ALB/GLOB RATIO 0.7; ALBUMIN 2.9 g/dL (3.5-5.0); ALKALINE PHOSPHATASE 263 U/L (32-122); BUN 14 mg/dL (8-22); CALCIUM 8.4 mg/dL (8.8-10.2); CHLORIDE 84 mmol/L (98-107); COSMO 240; ESTIMATED GFR > 60; GLUCOSE 148 mg/dL (70-104); GOT 28 U/L (10-34); GPT 10 U/L (10-44); MAGNESIUM 1.6 mg/dL (1.5-2.7); POTASSIUM 4.6 mmol/L (3.5-5.1); TCO2 21 mmol/L (25-35); TOTAL BILIRUBIN 0.72 mg/dL (0.20-1.00); TOTAL PROTEIN 6.9 g/dL (6.3-8.3)
[2019-07-30 03:01] LABS: SODIUM 117 mmol/L (136-145)
--- NOTE | 2019-07-30 04:17 | HISTORY AND PHYSICAL ---
PRIMARY CARE PROVIDER: Dr. Harpreet Ellison. DATE AND TIME: 07/30/2019 at 0045. CHIEF COMPLAINT: Abnormal labs. HISTORY OF PRESENT ILLNESS: Mr. Barkley is a 64-year-old male with a history of alcoholic cirrhosis, ascites, alcohol abuse and recent problems with hyponatremia. He was just admitted and discharged from our facility for hyponatremia, ascites requiring paracentesis, GI bleed, and anemia believed to be secondary to gastric erosions. He also did have an EGD performed which did show findings of esophageal varices and portal gastropathy. The patient states that he did have labs drawn outpatient yesterday, on 07/29/2019, ordered by Dr. Ellison. They did call informing that his sodium level was low, that he needed to go to the ER for further treatment. The patient states that he feels fine. He does report increased abdominal swelling, though states that his edema in his extremities, though it has not gotten better, has not worsened either. He does report that he still continues to drink daily anywhere up to 5 to 6 beers a day. Though other than this, he denies any headache, dizziness, chest pain, shortness of breath, cough. He denies any fever, body aches, or chills. He denies any abdominal pain, nausea, vomiting. He denies any hematochezia or melena. The patient did previously, on his most recent admission, have reports of diarrhea though he states this has pretty much subsided, he has only had a few episodes of this since then and this has improved greatly. He denies any dysuria. Other than the edema in his lower extremities, he denies any other new pain, numbness, tingling, or swelling in extremities. The patient states that his left leg normally is more swollen than his right, which is the case at this time. Though, the patient has not reported any confusion. He is alert oriented x4. He denies any recent sick contacts. Upon evaluation in the ER at [facility], he was noted to have a sodium of 117. His serum alcohol was 108. The patient was transferred from [facility] to [facility] for admission and further treatment evaluation of his hyponatremia and ascites. REVIEW OF SYSTEMS: A 14-point review of systems was conducted with the patient and all were negative, except for pertinent positives mentioned above HPI. PAST MEDICAL HISTORY: 1. Alcoholic cirrhosis. 2. Alcohol abuse. 3. History of ascites and paracentesis. 4. History of hypertension. 5. 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 6. History of anemia. 7. History of recent GI bleed. 8. Recent diagnosis of mild esophageal varices and portal gastropathy. PAST SURGICAL HISTORY: 1. Hernia repair. 2. Cholecystectomy. 3. Recent EGD. SOCIAL HISTORY: The patient currently lives with his . She is a respiratory therapist here at [facility]. The patient is a nonsmoker and denies any illicit drug use. Though he does report daily alcohol use. He does drink anywhere from 5 to 6 beers a day, though he previously did drink up to 12 to 18 beers a day in the past. FAMILY HISTORY: Positive for his Mother having a history of cancer. His Father in his 80s after becoming choked on a piece of pork. ALLERGIES: Patient reports allergies to simvastatin. HOME MEDICATIONS: We are waiting for the patient's home medication list to be updated and verified, once this is done we will continue appropriate medications. DIAGNOSTIC DATA/LABORATORY RESULTS: White blood cell count 13,590, hemoglobin 9.4, hematocrit 28.8, platelet count is 460,000. PT 16.5, INR 1.31, PTT is 40.6. Sodium 114, potassium 5, chloride 81, serum bicarb 21, BUN 13, creatinine 1, GFR greater than 60. Glucose 98, serum osmolality 251, calcium 8.8, phosphorus 3.4, magnesium 1.6. Liver function tests within normal limits, except for his alkaline phosphatase is elevated at 249. Serum alcohol was 108. Urinalysis was positive for protein in blood, though was negative for glucose, ketones, nitrites, leukocytes, white blood cells or bacteria. Urine sodium was 21. PHYSICAL EXAMINATION: VITAL SIGNS: Temperature 97.8 degrees, heart rate 64, respirations 21, blood pressure is 151/61 with a MAP of 84, oxygen saturation is 98% on room air. GENERAL: Mr. Barkley is a pleasant 64-year-old male, he was resting in the inpatient bed. He was in no acute distress. He was awake, alert, and able to answer questions appropriately. HEENT: Head is atraumatic, normocephalic. Pupils: The patient patient's left pupil is round, reactive to light, and was 3 mm with brisk pupillary response. The patient's right pupil, though, is misshapen, very small. Though this is not a new onset, this has been present since the patient did have a retinal hemorrhage when he was a teenager secondary trauma. He does have loss of vision in his right eye secondary to this. Oral mucosa is moist. Oropharynx is clear. NECK: Supple. Trachea midline. CARDIOVASCULAR: Patient has S1, S2 present. No murmurs, gallops, rubs appreciated. Regular rate and rhythm. PULMONARY: Patient has symmetrical chest expansion bilaterally. Lung sounds are clear to auscultation in bilateral full ruelas. ABDOMEN: Firm, is distended, though was nontender upon palpation. Bowel sounds were present in all 4 quadrants, were normoactive. EXTREMITIES: The patient does have approximately 2+ pitting edema noted in bilateral lower extremities. He does have worse edema in his left lower extremity than his right, though the patient states this is not a new onset. He reports that his left leg is always more swollen than his right. There was no erythema, warmth or tenderness noted upon palpation. Pulse, motor and sensory is intact in all extremities. Radial and pedal pulses were 2+ bilaterally. Capillary refill is less than 3. INTEGUMENTARY: Patient's skin is pink, warm, and dry. NEUROLOGICAL: Patient is alert and oriented to person, place, time, and situation. He is able to move all extremities. There is no focal neurological deficits noted. Under. ASSESSMENT AND PLAN: 1. Hypervolemic hypotonic hyponatremia. This is likely secondary to his liver disease. The patient was given some fluids in the ER at [facility], though at this time, we will hold any IV fluid infusions. The patient could benefit from possible oral fluid restrictions as well, though he is NPO at this time for an abdominal ultrasound with possible ultrasound-guided paracentesis in the morning. We are awaiting for his home medications to be verified as well. The patient did previously take Lasix and Aldactone. His initial sodium upon arrival through the ER was 114; upon recheck this morning at 2:12 a.m., it was 117. We will continue to monitor this closely. We have ordered q.6 hour sodium checks, as well. We will monitor his neurological status closely also. 2. History of ascites status post recent paracentesis, the first being on 07/09/2019, and on July 08 they did reportedly pull off 5 L of fluid. He did have a 2nd paracentesis on July 13, for which they did report they pulled off 7 L of fluid. The patient states that since he has been discharged that his abdominal swelling has continued to worsen. We have ordered, as mentioned above, abdominal ultrasound this morning with possibility of ultrasound-guided paracentesis. We have also ordered pleural fluid studies as well. 3. History of alcoholic cirrhosis. 4. Alcohol abuse. The patient states that he is still drinking anywhere from 5 to 6 beers daily at this time. We did counseling department chair the patient on the importance of refraining from alcohol ingestion given his liver disease. The patient is reporting that he is trying to cut back and does want to quit drinking. We will continue to monitor him closely for any signs of alcohol withdrawal. We have placed p.r.n. orders for Ativan as needed. We will continue to monitor this closely. 5. History of anemia and recent gastrointestinal bleed. The patient's hemoglobin and hematocrit at this time are stable and have actually improved some since his most recent admission. We will continue to monitor this closely, though he is denying any hematemesis, hematochezia or melena at this time. 6. Venous thromboembolism prophylaxis will be provided with sequential compression devices. The patient has been placed on the medical floor with telemetry. He will have vital signs every 8 hours. We will do q.4 hours neurological checks until his sodium levels have improved. We will do strict intake and output. Further orders and recommendations pending hospital course, diagnostic studies, and physician evaluation. Dictated by SPRING Perez for Jay Sanches MD I have performed a face to face diagnostic evaluation. Labs/xrays reviewed. Exam- Chest- rhonchi, CV- regular. A/P- Hyponatremia, chronic alcoholism, ascites- Admit, IV NS, monitor for withdrawals, Abdominal ultrasound. Dr. Sanches. cc: MD Harpreet Lindsay MD [facility]
[2019-07-30 12:12] LABS: BODY FLUID SOURCE ASCETIC FLUID; WBC BF 370 /cumm
[2019-07-30 12:13] LABS: MONOS 64 %; POLYS 36 %
--- NOTE | 2019-07-30 12:38 | Diag Imaging Result Doc PS360 ---
US ABD PARACENTESIS W S/I - 07/30/2019 INDICATION: Ascites COMPARISON: 07/14/2019 FINDINGS: The risks and benefits of the procedure were discussed with the patient. All questions were answered. Written and verbal consent was obtained. Ultrasound scanning demonstrated ascites. Overlying skin was prepped and draped in sterile fashion. Local anesthesia was achieved with injection of 10 cc 1% lidocaine. The paracentesis catheter was advanced until the return of ascites fluid. 4.3 L of straw-colored serous fluid was aspirated. The catheter was withdrawn intact. There were no known complications. IMPRESSION: Technically successful ultrasound-guided paracentesis with no known complications. Electronically signed by Rancho Pineda 07/30/2019 12:36 PM
[2019-07-30 13:04] LABS: GLUCOSE BODY FLUID 111 mg/dL; LDH BODY FLUID 62 U/L; TOTAL PROT BODY FLUID 2.5 g/dL
--- NOTE | 2019-07-30 16:40 | PROGRESS NOTE ---
DATE: 07/30/2019 SUBJECTIVE: This patient has been not hospitalized because of abdominal distention/ascites, hypervolemic hypotonic hyponatremia, and alcohol abuse as well. His sodium level improved from 114 to 117. He received some fluids in the emergency department, but now he is on a diet. We are checking his sodium level every 6 hours and I will try to get some lab work. He seems to be stable. He had a paracentesis done today and 4.7 L of fluid has been removed. He did not receive albumin because the amount of fluid that has been removed from his abdomen was less than 5 L. He seems to be stable. He is not confused. We had a large conversation about alcohol abuse and I will continue with daily cessation education. OBJECTIVE: Vital Signs: Temperature 98.4 degrees, pulse 63, respiratory rate 18, blood pressure 120/80, oxygen saturation 100% on room air. HEENT: Head normocephalic, no trauma. Neck: Supple. No JVD. No masses. Central trachea. Chest: Clear to auscultation. No wheezing. No rales. Abdomen: Soft, it is slightly distended. He had a paracentesis done on the right side of the abdomen with no signs of bleeding or fluid coming out spontaneously. Extremities: He has 2+ pitting edema. No clubbing. No cyanosis. Neurological: The patient is awake, alert. He is oriented x3. No focal deficits. LABORATORY: WBC 13.1, hemoglobin 9.2, hematocrit 27.9, platelets 421,000, sodium 117, potassium 4.6, chloride 84, bicarbonate 21, BUN 14, creatinine 1, glucose 148, calcium 8.4, albumin 2.9. ASSESSMENT AND PLAN: 1. Hypervolemic hypotonic hyponatremia. This is probably secondary to his liver disease and treatment. He has been having this kind of problem before. He is not having any problems with mental status changes, so we will continue with the same management. I will hold for now his Lasix and his Aldactone because he had a thoracentesis done today. I will check his BUN and creatinine in the morning. 2. History of ascites, status post paracentesis where 4.7 L of fluid has been removed. 3. Alcohol abuse. Actually, this patient is still drinking and his alcohol level was elevated when he was admitted. He has been highly advised against alcohol use. I will continue with daily cessation education. 4. Alcoholic liver cirrhosis, as above. I had a conversation with this patient about alcohol abuse. I told him that this can get worse if he does not stop drinking. 5. History of anemia and recent gastrointestinal bleed. Aware. 6. Deep vein thrombosis prophylaxis with sequential compression devices. cc: Jean Marie Crooks MD
[2019-07-30] MEDS ORDERED: ROBAXIN PO PRN (18:07)
[2019-07-30] MEDS ORDERED: M.V.I.-12 10 ML, FOLIC ACID 1 MG, MAGNESIUM SULFATE 1 GM, THIAMINE 100 MG in NS 1,000 ML IV ONE (18:08)
[2019-07-30] MEDS: LIBRIUM PO SCH (18:52)
[2019-07-30 19:54] LABS: UR CREAT RANDOM 35.9 mg/dL (14-26); UR PROT RANDOM 29.3 mg/dL
[2019-07-30] MEDS: MAG-OX PO SCH (21:52)
[2019-07-31] MEDS: LIBRIUM PO SCH ×4 (00:46→22:03)
[2019-07-31] MEDS: PRILOSEC PO SCH (06:09)
[2019-07-31 08:04] LABS: BASO# 0.07 X1000 (0.0-0.2); BASO% 0.7 % (0.0-0.8); EOS# 0.54 X1000 (0.0-0.7); EOS% 5.7 % (0.0-10.0); HEMATOCRIT 26.9 % (42.0-52.0); HEMOGLOBIN 8.6 g/dL (14.0-18.0); IMM GRAN# 0.04 X1000 (0.0-0.04); IMM GRAN% 0.4 % (0.0-0.5); LYMPH# 1.46 X1000 (1.2-3.4); LYMPH% 15.4 % (20.5-51.1); MCH 26.5 PG (27-31); MONO# 0.74 X1000 (0.11-0.59); MONO% 7.8 % (1.7-9.3); MPV 9.2 FL (7.4-10.4); NEUT# 6.61 X1000 (1.4-6.5); PLT 315 X1000 (130-400); RBC 3.24 XMIL (4.7-6.1); WBC 9.46 X1000 (4.8-10.8)
[2019-07-31 08:25] LABS: AGAP 14; BUN 16 mg/dL (8-22); CALCIUM 8.6 mg/dL (8.8-10.2); CHLORIDE 91 mmol/L (98-107); COSMO 261; CREATININE 1.1 mg/dL (0.7-1.2); ESTIMATED GFR > 60; GLUCOSE 147 mg/dL (70-104); POTASSIUM 4.2 mmol/L (3.5-5.1); SODIUM 128 mmol/L (136-145); TCO2 23 mmol/L (25-35)
[2019-07-31] MEDS: THERA M PLUS PO SCH (09:49)
[2019-07-31] MEDS: MAG-OX PO SCH ×2 (09:49→21:35)
[2019-07-31] MEDS: FERROUS SULFATE PO SCH (09:49)
[2019-07-31] MEDS: LASIX PO SCH (09:49)
[2019-07-31] MEDS: CORGARD PO SCH (09:49)
[2019-07-31] MEDS: VITAMIN B-12 PO SCH (09:49)
[2019-07-31] MEDS: ALDACTONE PO SCH ×2 (09:51→21:35)
--- NOTE | 2019-07-31 14:41 | PROGRESS NOTE ---
DATE: 07/31/2019 SUBJECTIVE: The patient seems to be feeling better, his abdomen is less distended after removing 4.7 L of fluid. He has been drinking a lot of water. As per the patient, a previous doctor has recommended to take a lot of water. I explained to him that the amount of water has to be limited. On the other hand, he drinks beer every day and that can cause hyponatremia as well. He seems to understand. I told him that he can drink up to 1.5 liters in 24 hours for now. His sodium level is getting better. He was admitted with a sodium level of 114 and now is 128, OBJECTIVE: Vital Signs: Temperature 97.5 degrees, pulse 60, respiratory rate 16, blood pressure 122/47, oxygen saturation 100% on room air. HEENT: Head normocephalic, no trauma. PERRLA. Neck: Supple. No JVD. No masses. Central trachea. Chest: Clear to auscultation. No wheezing. No rales. Abdomen: Soft. It is mildly distended. He had a paracentesis done on the right side with no signs of bleeding or discharge. Extremities: 2+ lower extremity edema. No clubbing. No cyanosis. Neurological examination: The patient is awake, alert. He is oriented x3. No focal deficits. LABORATORY: WBC 9.4, hemoglobin 8.6, hematocrit 26.9, platelets 315. Sodium 128, potassium 4.2, chloride 91, bicarbonate 23. BUN 16, creatinine 1.1, glucose 147, calcium 8.6. ASSESSMENT AND PLAN: 1. Hypervolemic hypotonic hyponatremia. This is likely secondary to liver disease and treatment on top of high amount of water and beer consumption. As per the patient, he has been told before by previous doctors that he needs to drink a lot of water. I told him that we need to cut that down to 1.5 liters in 24 hours. He seems to understand. On the other hand, I have placed this patient on Lasix and Aldactone, which are his home medications. 2. History of ascites status post paracenteses where 4.7 liters of fluid has been removed. 3. Alcohol abuse. Actually, this patient is still drinking and his alcohol level was elevated upon admission. He has been placed on Librium. I gave him a banana bag yesterday, but I will switch it to thiamine by mouth, as well as folic acid by mouth and monitor. 4. Alcoholic liver cirrhosis as above. I had a large conversation about alcohol abuse. This patient has been advised against drinking alcohol. We will continue with daily cessation education. 5. History of anemia and recent gastrointestinal bleed, aware. 6. Deep vein thrombosis prophylaxis with sequential compression devices. cc: Jean Marie Crooks MD
[2019-07-31] MEDS: FOLIC ACID PO SCH (16:14)
[2019-07-31] MEDS: VITAMIN B-1 PO SCH (16:14)
[2019-08-01] MEDS: LIBRIUM PO SCH ×4 (01:30→18:08)
[2019-08-01] MEDS: PRILOSEC PO SCH ×2 (05:38→06:11)
[2019-08-01 07:37] LABS: BASO# 0.06 X1000 (0.0-0.2); BASO% 0.5 % (0.0-0.8); EOS# 0.65 X1000 (0.0-0.7); EOS% 5.6 % (0.0-10.0); HEMATOCRIT 27.5 % (42.0-52.0); HEMOGLOBIN 8.9 g/dL (14.0-18.0); IMM GRAN# 0.08 X1000 (0.0-0.04); IMM GRAN% 0.7 % (0.0-0.5); LYMPH# 1.56 X1000 (1.2-3.4); LYMPH% 13.4 % (20.5-51.1); MCHC 32.4 g/dL (33-37); MCV 83.3 FL (81-99); MONO# 1.04 X1000 (0.11-0.59); MONO% 8.9 % (1.7-9.3); MPV 9.2 FL (7.4-10.4); NEUT# 8.26 X1000 (1.4-6.5); NEUT% 70.9 % (42.2-75.2); PLT 343 X1000 (130-400); RDW 16.6 % (11.5-14.5); WBC 11.65 X1000 (4.8-10.8)
[2019-08-01 08:14] LABS: AGAP 10; ALB/GLOB RATIO 0.9; ALKALINE PHOSPHATASE 245 U/L (32-122); BUN 17 mg/dL (8-22); CALCIUM 8.6 mg/dL (8.8-10.2); CHLORIDE 90 mmol/L (98-107); COSMO 251; CREATININE 1.1 mg/dL (0.7-1.2); ESTIMATED GFR > 60; GLUCOSE 63 mg/dL (70-104); GOT 30 U/L (10-34); GPT 11 U/L (10-44); POTASSIUM 4.1 mmol/L (3.5-5.1); SODIUM 125 mmol/L (136-145); TCO2 25 mmol/L (25-35); TOTAL BILIRUBIN 0.56 mg/dL (0.20-1.00); TOTAL PROTEIN 6.4 g/dL (6.3-8.3)
[2019-08-01] MEDS: VITAMIN B-1 PO SCH (08:39)
[2019-08-01] MEDS: MAG-OX PO SCH ×2 (08:39→20:49)
[2019-08-01] MEDS: FERROUS SULFATE PO SCH (08:39)
[2019-08-01] MEDS: LASIX PO SCH (08:39)
[2019-08-01] MEDS: FOLIC ACID PO SCH (08:39)
[2019-08-01] MEDS: ALDACTONE PO SCH ×2 (08:39→20:49)
[2019-08-01] MEDS: VITAMIN B-12 PO SCH (08:39)
[2019-08-01] MEDS: CORGARD PO SCH (08:39)
[2019-08-01] MEDS: THERA M PLUS PO SCH (08:40)
--- NOTE | 2019-08-01 14:59 | PROGRESS NOTE ---
DATE: 08/01/2019 SUBJECTIVE: This morning, Mr. Barkley refers to be doing a lot better. He feels more stronger. Denies any new complaints. OBJECTIVE: Vital signs: Blood pressure is 134/70, pulse 64, respirations 15, temperature 98.8 degrees. General: Mr. Barkley is a 64-year-old gentleman. He was sitting in a chair, no distress. HEENT: Mucosa is pink and moist. Anicteric. Acyanotic. Neck: Supple. There is no JVD. Chest: Good air entry bilaterally. There were no crepitations, no rhonchi. Cardiovascular: Regular rate and rhythm. No murmurs. Gastrointestinal: Abdomen is soft, is protuberant, nontender. There is positive fluid shifts. There is edema in the lateral aspect of the abdominal wall. Extremities: About 2+ pedal edema. Central nervous system: Patient is awake, alert, and oriented. LABORATORY DATA: WBC of 11.65, hemoglobin of 8.9, platelet count of 343,000. Chemistry is also reviewed, is unremarkable. Sodium is 125, up from 114 on admission. ASSESSMENT: 1. Symptomatic hypovolemic hyponatremia, stable. The patient continues to be on fluid restriction. 2. 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 3. Compensated alcohol-induced cirrhosis of the liver. MELD score of 9 with low sodium. Child Locke score 8 (category B) which is complicated with splenomegaly, esophageal varices, portal gastropathy, ascites, and coagulopathy. The patient will continue to follow up with GI. 4. Alcohol use and abuse. Patient has been counseled. 5. Ascites. The patient is status post paracenteses, 4.3 L removed. They will continue with the dual diuretic therapy. PLAN: In general, I think Mr. Barkley is doing well. We are going to continue with the fluid restriction. Sodium is gradually improving. We will add oral vitamin K to his current therapy, re-evaluate his sodium level in the morning and hopefully get him discharged. cc: Luc Gilbert MD
[2019-08-02] MEDS: LIBRIUM PO SCH ×2 (00:35→06:25)
[2019-08-02] MEDS: PRILOSEC PO SCH (06:25)
[2019-08-02 07:24] LABS: AGAP 12; ALB/GLOB RATIO 0.9; ALBUMIN 2.8 g/dL (3.5-5.0); ALKALINE PHOSPHATASE 231 U/L (32-122); BUN 17 mg/dL (8-22); CALCIUM 8.4 mg/dL (8.8-10.2); CHLORIDE 93 mmol/L (98-107); COSMO 258; ESTIMATED GFR > 60; GLUCOSE 92 mg/dL (70-104); GOT 28 U/L (10-34); GPT 11 U/L (10-44); POTASSIUM 4.7 mmol/L (3.5-5.1); SODIUM 128 mmol/L (136-145); TCO2 23 mmol/L (25-35); TOTAL PROTEIN 5.9 g/dL (6.3-8.3)
[2019-08-02] MEDS ORDERED: VITAMIN K PO SCH (09:00)
[2019-08-02] MEDS: THERA M PLUS PO SCH (10:20)
[2019-08-02] MEDS: VITAMIN B-1 PO SCH (10:20)
[2019-08-02] MEDS: LASIX PO SCH (10:21)
[2019-08-02] MEDS: CORGARD PO SCH (10:21)
[2019-08-02] MEDS: MAG-OX PO SCH (10:21)
[2019-08-02] MEDS: FOLIC ACID PO SCH (10:21)
[2019-08-02] MEDS: ALDACTONE PO SCH (10:21)
[2019-08-02] MEDS: FERROUS SULFATE PO SCH (10:22)
[2019-08-02] MEDS: VITAMIN B-12 PO SCH (10:22)
[2019-08-02 12:08] VITALS: BP 136/70
--- NOTE | 2019-08-03 06:38 | DISCHARGE SUMMARY ---
ADMISSION DATE: 07/29/2019 DISCHARGE DATE: 08/02/2019 DISPOSITION: Home. FOLLOWUP: 1. Dr. Ellison. 2. Dr. Kacie Alcocer in [place]. CONSULTATION DURING THIS ADMISSION: None. INVASIVE PROCEDURES DONE DURING THIS ADMISSION: Ultrasound-guided paracenteses was done by IR. IMAGING STUDIES OF SIGNIFICANCE: None. ADMISSION DIAGNOSES: 1. Hypervolemic hyponatremia. 2. Ascites status post recent paracenteses. 3. History of alcohol cirrhosis. 4. Alcohol use and abuse. DIAGNOSES AT THE TIME OF DISCHARGE: 1. Symptomatic hypervolemic hyponatremia. This improved with fluid restriction. 2. 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 3. Compensated alcohol-induced cirrhosis of the liver. MELD score of 9 with low sodium. Child- Locke category B complicated with splenomegaly, esophageal varices, portal gastropathy, ascites, and coagulopathy. The patient follows up with Dr. Alcocer in [place]. 4. Alcohol use and abuse. The patient has been counseled. 5. Ascites. The patient is status post paracenteses, 4.3 ascitic fluid was removed, analysis was negative for SBP. DISCHARGE MEDICATIONS: 1. Magnesium oxide 400 b.i.d. 2. Multivitamin 1 tablet daily. 3. Robaxin 750 q. 12. 4. Cyanocobalamin 2500 mcg p.o. daily. 5. Nadolol 20 mg p.o. daily. 6. Iron sulfate 325 p.o. daily. 7. Pantoprazole 40 mg p.o. daily. 8. Furosemide 40 mg p.o. daily. 9. Thiamine 100 mg p.o. daily. 10. Spironolactone 100 mg p.o. daily. 11. Folic acid 1 mg p.o. daily. 12. Vitamin K 5 mg p.o. daily. PRESENTING COMPLAINT: Abnormal labs. HISTORY OF PRESENTING COMPLAINT: Mr. Barkley is a 64-year-old gentleman who has history of alcohol-induced cirrhosis of the liver with multiple complications, went to his primary care physician, Dr. Ellison, for routine lab works and was found to be remarkably low in his sodium, was advised to come to the emergency room for evaluation. Mr. Barkley refers that he currently takes anywhere between 5 to 6 beers on daily basis and he has been actually cutting down on that. Upon presentation, he was evaluated, was found to be severely hyponatremic with sodium of 114. He was also volume overload. He underwent paracentesis where over 4 L were removed by IR. Subsequently, he was started on dual diuretic therapy and he was put on fluid restriction. Over the course of the hospital stay, he did improve significantly. His sodium went up to 128. He is currently asymptomatic. He feels much better and stronger. He has not had any hematemesis or melena stools. His fluid analysis was negative for SBP, and he has been negative balance during the hospital course. This morning, Mr. Barkley referred to be feeling much better. His vitals stable, blood pressure 136/70 with a pulse of 62, respirations 14, temperature is 98.5 degrees, clinically stable. Still has some mild residual ascites and about 1+ pedal edema, but we think he is clinically stable to be discharged. He is going to follow up with his primary care doctor as well as with his GI doctor (Dr. Kacie Lopez in [facility]). All the discharge instructions have been discussed with him. We stressed the need for alcohol cessation and also fluid restriction to just 1 L per day. He is supposed to repeat his BMP within a week and follow it up with his primary care doctor. All the discharge instructions discussed with Mr. Barkley and he voiced understanding. All his questions and concerns have been addressed. TIME SPENT FOR DISCHARGE: 35 minutes. cc: Luc Gilbert MD
== END 2019-08-02 13:41 | disposition home or self-care (01) | DRG 433 ==
LOC: P.ED 17:23 → 3N 21:18 → SUATTDRO 21:18
PROVIDERS: ATTEND Internal Medicine